=== PATIENT | female | born 1940 | race Caucasian/White ===

== ENCOUNTER 2021-02-19 10:33 | Outpatient (REF) | payer MEDICARE, SELFPAY ==
--- NOTE | 2021-02-22 08:21 | MHC.AU.AHA ---
Adult Audiological Evaluation Date of Visit: 02/19/21 Assistant Engineer Used: Not Applicable Reason for Appointment: Audiologic re-evaluation due to question of change in hearing ability and needs hearing aid maintenance. Previous Hearing Test Results: 05/07/2017 [facility] Right Ear - Mild to moderately-severe sensorineural hearing loss with 96% speech understanding Left Ear - Normal hearing at 250 Hz sloping to a moderate sensorineural hearing loss with 96% speech understanding Medical History: Medical History: Past history of Head Injury, High Blood Pressure, Thyroid Disease Medication List: Telmisartan, Esomeprazole, Antenolol, Levothyroxine, Lorazepam, Dexamethosone Hearing Instrument History- Right Ear: Nurse Sane: Roombeats Model: LiveLeaf 70-M [employer] Serial Number: [id number] Battery Size: 312 Repair Warranty: 02/02/2019 Dispensed By: [facility] Date of Fittin11/13/2015 Hearing Instrument History- Left Ear: Nurse Sane: Roombeats Model: Hearsay.it V 70-M [employer] Serial Number: [id number] Battery Size: 312 Warranty: 02/02/2019 Dispensed By: [facility] Date of Fittin11/13/2015 Otoscopy: Right Ear: Partially occluding cerumen removed prior to today's test Left Ear: Partially occluding cerumen removed prior to today's test Tympanometry: Tympanometry performed due to: History of middle ear dysfunction Right Ear: Non-compliant Middle Ear System (Type B) Left Ear: Normal Middle Ear System (Type A) Hearing Evaluation: Transducer(s) Used: Insert Earphones Method: Conventional Audiometry Stimuli Used: Pure Tones Right Ear: Description of Hearing: Moderate to moderately-severe sensorineural hearing loss Left Ear: Description of Hearing: Normal hearing at 250 Hz sloping to a moderate sensorineural hearing loss Speech Recognition Threshold (SRT): Method Used: Monitored Live Voice Stimuli Used: Spondee Words Right Ear: 45 dB HL Left Ear: 30 dB HL Word Discrimination: Method: Recorded Lists Word Lists Used: NU-6 Right Ear: 96% at 85 dB HL Left Ear: 96% at 70 dB HL Comparison: Compared to most recent evaluation: Hearing thresholds have decreased 5-10 dB bilaterally with stable speech discrimination ability. Recommendations: Hearing aid maintenance performed today. Hearing aid(s) reprogrammed with updated test results. Audiological re-evaluation in one year. Will send a reminder card. Diagnosis: Primary Diagnosis: H90.3 Bilateral Sensorineural Hearing Loss Secondary Diagnosis: H69.91 Unspecified Eustachian Tube Dysfunction, Right Ear Services Performed: Comprehensive Audiological Evaluation (CPT 91120) Tympanometry (CPT 93434) Signature: Provider: Angeline Richards, CCC-A
== END 2021-02-19 10:34 | disposition home or self-care (01) ==
LOC: HO.SH 10:33
PROVIDERS: Visit Provider Internal Medicine
DX: H90.3 Sensorineural hearing loss, bilateral (principal); H69.91 Unspecified Eustachian tube disorder, right ear
CPT/HCPCS: 92557; 92567

== ENCOUNTER 2021-02-19 11:28 | Outpatient (REF) | payer SELFPAY | END 2021-02-19 11:29 | disposition home or self-care (01) | LOC: HO.HAP 11:28 | PROVIDERS: Visit Provider Internal Medicine | DX: Z46.1 Encounter for fitting and adjustment of hearing aid (principal); H90.3 Sensorineural hearing loss, bilateral; H61.23 Impacted cerumen, bilateral | CPT/HCPCS: 92700 ==

== ENCOUNTER → 2021-09-18 10:30 | Outpatient (REF) | payer MEDICARE, SELFPAY ==
--- NOTE | 2021-09-18 10:35 | CA_ITS ---
Transthoracic Echocardiogram Patient (Last, First, Middle): Ambreen Wayne S Gender: Female Date of : 1940 Age: 81 Procedure Date: 09/18/2021 Procedure Type: Transthoracic Echocardiogram Location: OP Height: 157.48 cm Weight: 78.47 kg BSA: 1.80 m2 Heart Rate: bpm BP: 120 / 70 mmHg Train Announcer: SELENE Referring MD: Joanie Raymundo NP Symptoms: I35.0 AORTIC VALVE STENOSIS Study Quality: Fair ECG Rhythm: Sinus Conclusions: - The left ventricular systolic function is normal. The calculated ejection fraction is 63% by biplane method. - There is moderate calcification of the aortic valve. There is mild aortic valve stenosis. - There is moderate mitral annular calcification. Findings Left Ventricle Normal left ventricular cavity size. There is mildly increased left ventricular wall thickness. The left ventricular systolic function is normal. The calculated ejection fraction is 63% by biplane method. There is no evidence of regional wall motion abnormalities. E/E prime ratio is between 8 and 15 consistent with indeterminate filling pressures. Evidence suggests grade I (mild) diastolic dysfunction. Right Ventricle Normal right ventricular cavity size and systolic function. Atria Both atria are normal in size. Aortic Valve There is moderate calcification of the aortic valve. There is mild aortic valve stenosis. The mean gradient is 13 mmHg. The aortic valve area is 1.61 cm2. There is no aortic valve regurgitation. Mitral Valve There is moderate mitral annular calcification. There is trace mitral valve regurgitation. There is no mitral valve stenosis. Pulmonic Valve The pulmonic valve was not well visualized. Tricuspid Valve Normal tricuspid valve structure. There is trace tricuspid valve regurgitation. The pulmonary artery systolic pressure is not calculated. Great Vessels The aortic annulus, sinuses of valsalva, asc aorta, and aortic arch are normal in size. Venous The inferior vena cava is normal in size and collapses greater than 50% with inspiration. Pericardium/Pleural There is no evidence of pericardial effusion. Prior Study Comparison No significant change compared to prior study dated: 08/09/2019. Measurements 2D Linear Measurements IVSd: 1.09 0.6-0.9/0.6-1.0 cm LVIDd: 3.91 3.9-5.3/4.2-5.9 cm LVIDd Index: 2.17 2.4-3.2/2.2-3.1 cm/m2 LVIDs: 2.16 2.0-3.6 cm LVPWd: 1.07 0.7-1.1 cm Ao Root: 3.50 2.1-3.5 cm LA Diam: 3.70 2.7-3.8/3.0-4.0 cm LAIDs Index: 2.06 1.5-2.3 cm/m2 LV Mass: 170.43 67-162/88-224 g LV Mass Index: 94.68 43-95/49-115 g/m2 LVOT Diam: 2.00 3.0+(-)1.3 cm 2D Systolic Function EF 4C: 64.40 >55% EF 2C: 60.70 >55% EF BiP: 62.80 >55% Mitral Valve MV Pk E: 0.64 MV PK A: 1.11 MV Decel Time: 351.00 E/A: 0.60 E'Lateral: 7.07 E'Medial: 4.13 E/E' Med: 15.40 E/E' Lat: 9.00 PHT: 103.00 MVA PHT: 2.14 Decel White: 1.82 Aortic Valve AoV Pk Jarad: 2.46 AoV Mn Jarad: 1.64 AoV VTI: 0.52 AoV Pk Grad: 24.00 Aov Mn Grad: 13.00 DOM Cont.VTI: 1.61 LVOT LVOT Pk Jarad: 1.13 LVOT Mn Jarad: 0.86 LVOT VTI: 0.27 LVOT Pk Grad: 5.00 LVOT Mn Grad: 3.00 LVOT Diam: 2.00 LVOT Area: 3.14 Diastolic Function MV Pk E: 0.64 MV Pk A: 1.11 E/A: 0.60 E'Medial: 4.13 E/E' Med: 15.40 E' Laterial: 7.07 E/E' Lat: 9.00 Right Ventricle TAPSE (mm): 2.39 TVS' Jarad: 11.60 Tricuspid Valve RA Press: 3.00 Great Vessels Aorta Ao Root-2D: 3.50 2.0-3.7 cm Ao Asc: 3.00 2.1-3.4 cm Ao Arch: 3.10 Updated in Other Vendor System with Status of Final Guido Galeano MD electronically signed on 09/20/2021 5:45:52 PM with status of Final
== END ==
LOC: HO.CARD 10:30
PROVIDERS: PCP Internal Medicine; Visit Provider Nurse Practitioner
DX: I35.0 Nonrheumatic aortic (valve) stenosis (principal)
CPT/HCPCS: 93306

== ENCOUNTER 2021-12-18 13:43 | Outpatient (REF) | payer MEDICARE, SELFPAY ==
--- NOTE | ~2021-12-18 | US_ITS ---
EXAMINATION: US EXTRACRANIAL CAROTID DUPLEX, BILATERAL CLINICAL INFORMATION: Dizziness, bilateral carotid bruit COMPARISON: None TECHNIQUE: Real-time ultrasound and Doppler techniques (integrating B-mode 2-D vascular images, Doppler spectral analysis and color-flow Doppler imaging) were utilized to interrogate the extracranial carotid arteries, the vertebral arteries and proximal subclavian arteries bilaterally. The degree of stenosis is determined by criteria similar to NASCET. FINDINGS: Right Side: 1. There is no atherosclerotic plaque seen in the bifurcation/proximal ICA region. 2. The common carotid artery PSV proximally is 119 cm/s and distally 86 cm/s. 3. The proximal internal carotid artery velocities are 88 cm/s systolic and 18 cm/s diastolic. 4. The proximal external carotid artery PSV is 99 cm/s. 5. The vertebral artery shows antegrade flow. 6. The subclavian artery waveforms are normal. Left Side: 1. There is no atherosclerotic plaque seen in the bifurcation/proximal ICA region. 2. The common carotid artery PSV proximally is 97 cm/s and distally 90 cm/s. 3. The proximal internal carotid artery velocities are 54 cm/s systolic and 15 cm/s diastolic. 4. The proximal external carotid artery PSV is 97 cm/s. 5. The vertebral artery shows antegrade flow. 6. The subclavian artery waveforms are normal. US/US carotid duplex BI IMPRESSION: 1. RIGHT: Normal right internal carotid artery without atherosclerotic plaque or hemodynamically significant stenosis. 2. LEFT: Normal left internal carotid artery without atherosclerotic plaque or hemodynamically significant stenosis.
== END 2021-12-18 13:44 | disposition home or self-care (01) ==
LOC: HO.US 13:43
PROVIDERS: Visit Provider Nurse Practitioner
DX: R42 Dizziness and giddiness (principal); R09.89 Other specified symptoms and signs involving the circulatory and respiratory systems
CPT/HCPCS: 93880

== ENCOUNTER 2022-03-17 10:40 | Outpatient (REF) | payer MEDICARE, SELFPAY ==
--- NOTE | ~2022-03-17 | XR_ITS ---
EXAMINATION: XR LUMBOSACRAL SPINE CLINICAL INFORMATION: Bilateral lower back pain. COMPARISON: None TECHNIQUE: AP and lateral views of the lumbar spine and lateral view of the lumbosacral junction. FINDINGS: There is bony demineralization. Vertebral body heights are normal. At L4-L5, there is a 4 mm anterolisthesis. The remaining disc spaces are relatively well-maintained. There is multi-level mild to moderate lower thoracic and lumbar spondylosis. The posterior elements are intact. There is facet arthropathy, most pronounced at L4-L5 and L5-S1. There are aortoiliac atherosclerotic calcifications. There are 9 mm and 10 mm left renal upper pole and lower pole calculi. There are right upper quadrant surgical clips. XR/XR lumbar spine 2-3V IMPRESSION: 1. There is moderate degenerative disc disease at L4-L5. 2. There is multi-level mild to moderate thoracolumbar spondylosis. 3. There is bilateral facet arthropathy, most pronounced at L4-L5 and L5-S1. 4. There are left renal calculi.
== END 2022-03-17 10:41 | disposition home or self-care (01) ==
LOC: HO.XRAY 10:40
PROVIDERS: PCP Internal Medicine; Visit Provider Internal Medicine
DX: M54.50 Low back pain, unspecified (principal); G89.29 Other chronic pain
CPT/HCPCS: 72100

== ENCOUNTER 2022-03-28 10:42 | Outpatient (REF) | payer MEDICARE, SELFPAY ==
--- NOTE | ~2022-03-28 | CT_ITS ---
EXAMINATION: CT ABDOMEN AND PELVIS WITHOUT CONTRAST CLINICAL INFORMATION: Right-sided flank pain. COMPARISON: Radiographs lumbar spine 03/17/2022 TECHNIQUE: Multidetector volumetric imaging was performed from the superior aspect of the liver through the pubic symphysis. Sagittal and coronal reformatted images were obtained on the technologist's workstation. This CT examination was performed using dose optimization techniques as appropriate, variously including the following: *Automated exposure control *Adjustment of mA and/or kV according to patient size (this includes techniques or standardized protocols for targeted exams where dose is matched to indication/reason for exam; i.e. extremities or head) *Use of iterative reconstruction technique DLP: 507 mGy-cm FINDINGS: LUNG BASES: The visualized lung bases are unremarkable. LIVER, GALLBLADDER, AND BILIARY TREE: The liver is normal in size and smooth in contour. There is mild decreased hepatic parenchyma. -No bowel obstruction or inflammatory changes in bowel or mesentery. No ascites. Attenuation consistent with mild hepatic steatosis. No focal hepatic parenchymal lesion or intrahepatic biliary ductal dilatation. There has been prior cholecystectomy. Common duct unremarkable. PANCREAS: Unremarkable. SPLEEN: Unremarkable. ADRENAL GLANDS: Unremarkable. KIDNEYS AND URETERS: The kidneys are normal in size and parenchymal thickness. There is no hydronephrosis, hydroureter, or perinephric stranding. Left kidney has nonobstructing calculus upper pole 8 x 6 mm, 938 HU attenuation, and 11 cm from flank. There is also a nonobstructing interpolar calculus 9 x 5 mm, 1315 HU attenuation, and 14 cm from flank. There are 2 cysts left upper pole, both of water attenuation measuring approximately 4.5 cm and 3.4 cm, respectively. No left ureteral calculi. Right kidney has no calculi and no right ureteral calculi. There is a cyst interpolar under 3 cm of water attenuation. BLADDER: Nondistended. No bladder calculi. GASTROINTESTINAL TRACT: No bowel obstruction or focal inflammatory changes in bowel or mesentery. Appendix not seen with certainty. No inflammatory changes around the terminal ileum or cecum. There are scattered diverticula in the colon, greatest sigmoid. No diverticulitis. No ascites or fluid collection. ABDOMINAL WALL: Small fat-containing periumbilical hernia, approximately 2 cm. LYMPH NODES: No lymphadenopathy. VASCULAR: Unremarkable. PELVIC VISCERA: Unremarkable. OSSEOUS STRUCTURES: No visible acute bony abnormality. There are degenerative disc changes L4-L5 and facet degeneration L4 through S1. CT/CT abdomen pelvis wo con IMPRESSION: -No hydronephrosis or perinephric stranding. There are 2 nonobstructing calculi left kidney, larger 9 mm. -Bilateral renal cysts. No additional imaging evaluation recommended. -Mild hepatic steatosis. Prior cholecystectomy.
== END 2022-03-28 10:43 | disposition home or self-care (01) ==
LOC: HO.CT 10:42
PROVIDERS: PCP Internal Medicine; Visit Provider Internal Medicine
DX: R10.9 Unspecified abdominal pain (principal); Z90.49 Acquired absence of other specified parts of digestive tract
CPT/HCPCS: 74176

== ENCOUNTER 2022-04-14 13:00 | Outpatient (RCR) | payer MEDICARE, SELFPAY | END 2022-04-14 15:40 | disposition home or self-care (01) | LOC: HO.PTCHIC 13:00 | PROVIDERS: PCP Internal Medicine; Visit Provider Internal Medicine | DX: M54.42 Lumbago with sciatica, left side (principal) | CPT/HCPCS: 97110; 97140; 97150; 97161 ==

== ENCOUNTER 2022-05-08 09:47 | Outpatient (REF) | payer SELFPAY | END 2022-05-08 09:48 | disposition home or self-care (01) | LOC: HO.HAP 09:47 | PROVIDERS: Visit Provider Internal Medicine | DX: Z46.1 Encounter for fitting and adjustment of hearing aid (principal); H90.3 Sensorineural hearing loss, bilateral | CPT/HCPCS: 99499 ==

== ENCOUNTER 2022-07-03 15:00 | Outpatient (RCR) | payer MEDICARE, SELFPAY ==
--- NOTE | 2022-07-03 17:03 | MHC.PT.DC ---
[facility] [place] Office [place] Office [place] Office [address] Rishi Kemp [address] [phone] F: [phone] F: [phone] F: [phone] F: [phone] Physical Therapy Discharge Report Diagnosis: L foot hallux valgus Date of Surgery: 04/16/2022 Date of Evaluation: 05/16/22 Date of Discharge: 07/03/22 Treatments to Date: 10 Cancellations to Date: No Shows to Date: Discharge Status: Achieved Goals Improved Function Independent with HEP Discharge Summary: Ambreen has been an active participant in her therapy and is in agreement with DC today as she is I with her home program and although persists with some pain is much improved of her pain and tolerance for walking. LEFI outcome measure improved from 35/80 to 55/80 which is a significant improvement. Electronically signed by: Kodi Duran PT. Please sign and return to therapist. Thank you for your referral.
== END 2022-07-03 17:02 | disposition home or self-care (01) ==
LOC: HO.PTCHIC 15:00
PROVIDERS: Visit Provider Podiatrist
DX: M20.12 Hallux valgus (acquired), left foot (principal)
CPT/HCPCS: 97110; 97112; 97140; 97161

== ENCOUNTER 2022-09-23 12:40 | Outpatient (REF) | payer MEDICARE, SELFPAY ==
--- NOTE | ~2022-09-23 | US_ITS ---
EXAMINATION: US RETROPERITONEAL LIMITED (RENAL ONLY) CLINICAL INFORMATION: Kidney stone. COMPARISON: CT abdomen and pelvis without contrast 03/28/2022. TECHNIQUE: Real-time imaging of the kidneys. FINDINGS: RIGHT KIDNEY: 11.0 x 5.8 x 6.3 cm (SAG x AP x TRV). The kidney is normal in size, contour, and echogenicity. Renal cortical thickness is normal. No renal calculi or hydronephrosis. There is anechoic simple cyst in the midpole measuring 2.8 x 2.5 x 2.6 cm. LEFT KIDNEY: 9.8 x 5.0 x 5.7 cm (SAG x AP x TRV). The kidney is normal in size, contour, and echogenicity. Renal cortical thickness is normal. No hydronephrosis. Anechoic cyst seen upper pole measuring 3.3 x 2.8 x 2.9 cm and 3.9 x 3.1 x 3.9 complex cyst upper pole medially. There is nonobstructive echogenic stone in lower pole measuring 0.48 x 0.22 x 0.75 cm. A nonobstructive echogenic stone is seen lower pole measures 0.48 x 0.23 x 0.75 cm US/US renal BI IMPRESSION: Bilateral simple cysts and a complex cyst upper pole left kidney Nonobstructive echogenic stone lower pole left kidney without caliectasis or hydronephrosis.
== END 2022-09-23 12:41 | disposition home or self-care (01) ==
LOC: HO.HMGCX 12:40
PROVIDERS: Visit Provider Urology
DX: N20.0 Calculus of kidney (principal)
CPT/HCPCS: 76775

== ENCOUNTER 2022-10-23 11:31 | Outpatient (REF) | payer MEDICARE, SELFPAY | END 2022-10-23 11:32 | disposition home or self-care (01) | LOC: HO.SH 11:31 | PROVIDERS: Visit Provider Internal Medicine | DX: Z01.118 Encounter for examination of ears and hearing with other abnormal findings (principal); H90.3 Sensorineural hearing loss, bilateral; H61.21 Impacted cerumen, right ear | CPT/HCPCS: 92557; 92567 ==

== ENCOUNTER 2022-10-23 12:28 | Outpatient (REF) | payer SELFPAY | END 2022-10-23 12:29 | disposition home or self-care (01) | LOC: HO.HAP 12:28 | PROVIDERS: Visit Provider Internal Medicine | DX: Z46.1 Encounter for fitting and adjustment of hearing aid (principal); H90.3 Sensorineural hearing loss, bilateral; H61.21 Impacted cerumen, right ear | CPT/HCPCS: 92700 ==

== ENCOUNTER → 2022-10-31 13:01 | Outpatient (REF) | payer MEDICARE, SELFPAY ==
--- NOTE | 2022-10-31 13:04 | CA_ITS ---
Transthoracic Echocardiogram Patient (Last, First, Middle): Ambreen Wayne S Gender: Female Date of : 1940 Age: 82 Procedure Date: 10/31/2022 Procedure Type: Transthoracic Echocardiogram Location: OP Height: 157.48 cm Weight: 76.66 kg BSA: 1.78 m2 Heart Rate: bpm BP: 130 / 60 mmHg Window Glass Cutter Off: TO Referring MD: Kodi Hong MD Symptoms: HTN NONRHEUMATIC AROTIC VALVE SENTOSIS Study Quality: Fair ECG Rhythm: Sinus Conclusions: - The left ventricular systolic function is normal. The calculated ejection fraction is 68% by biplane method. - There is moderate aortic valve stenosis. - There is mild mitral valve stenosis. Findings Left Ventricle Normal left ventricular cavity size. The left ventricular systolic function is normal. The calculated ejection fraction is 68% by biplane method. There is no evidence of regional wall motion abnormalities. E/E prime ratio is >15, consistent with elevated filling pressures. Evidence suggests grade I (mild) diastolic dysfunction. There is mild septal asymmetric hypertrophy. Right Ventricle Normal right ventricular cavity size and systolic function. Atria Both atria are normal in size. Aortic Valve There is moderate calcification of the aortic valve. There is moderate aortic valve stenosis. The mean gradient is 13 mmHg. The aortic valve area is 1.23 cm2. There is no aortic valve regurgitation. Dimensionless index 0.39. Mitral Valve The mitral valve appears normal. There is moderate mitral annular calcification. There is no mitral valve regurgitation. There is mild mitral valve stenosis. Pulmonic Valve The pulmonic valve is likely normal. Tricuspid Valve There is trace tricuspid valve regurgitation. There is no evidence of pulmonary hypertension. Great Vessels The asc aorta is normal in size. Venous The inferior vena cava is normal in size and collapses greater than 50% with inspiration. Pericardium/Pleural Widened pericardial space, unable to distinguish between adipose tissue and effusion. Prior Study Comparison Changes noted compared to prior study dated: 09/18/2021. Progression of valvular abnormalities. Measurements 2D Linear Measurements IVSd: 1.06 0.6-0.9/0.6-1.0 cm LVIDd: 3.98 3.9-5.3/4.2-5.9 cm LVIDd Index: 2.24 2.4-3.2/2.2-3.1 cm/m2 LVIDs: 2.25 2.0-3.6 cm LVPWd: 0.92 0.7-1.1 cm LA Diam: 4.20 2.7-3.8/3.0-4.0 cm LAIDs Index: 2.36 1.5-2.3 cm/m2 LV Mass: 154.17 67-162/88-224 g LV Mass Index: 86.61 43-95/49-115 g/m2 LVOT Diam: 2.00 3.0+(-)1.3 cm 2D Systolic Function EF 4C: 72.00 >55% EF 2C: 65.30 >55% EF BiP: 67.90 >55% Mitral Valve MV VTI: 0.39 MV Pk Jarad: 1.26 MV Mn Jarad: 0.75 MV Pk Grad: 6.00 MV Mn Grad: 3.00 MV Pk E: 0.72 MV PK A: 1.13 MV Decel Time: 279.00 E/A: 0.60 E'Lateral: 6.96 E'Medial: 4.03 E/E' Med: 17.80 E/E' Lat: 10.30 PHT: 82.00 MVA PHT: 2.68 MVA Continuity: 1.93 Decel [place]: 2.56 Aortic Valve AoV Pk Jarad: 2.47 AoV Mn Jarad: 1.74 AoV VTI: 0.62 AoV Pk Grad: 24.00 Aov Mn Grad: 13.00 DOM Cont.VTI: 1.23 LVOT LVOT Pk Jarad: 0.97 LVOT Mn Jarad: 0.66 LVOT VTI: 0.24 LVOT Pk Grad: 4.00 LVOT Mn Grad: 2.00 LVOT Diam: 2.00 LVOT Area: 3.14 Diastolic Function MV Pk E: 0.72 MV Pk A: 1.13 E/A: 0.60 E'Medial: 4.03 E/E' Med: 17.80 E' Laterial: 6.96 E/E' Lat: 10.30 Right Ventricle TAPSE (mm): 22.20 TVS' Jarad: 10.80 Great Vessels Aorta Sinus of Valsalva: 3.17 2.0-3.[address] [place]: 2.38 1.7-3.4 cm Ao Asc: 3.00 2.1-3.4 cm Updated in Other Vendor System with Status of Final Guido Galeano MD electronically signed on 11/02/2022 10:37:39 AM with status of Final
== END ==
LOC: HO.CARD 13:01
PROVIDERS: PCP Internal Medicine; Visit Provider Internal Medicine
DX: I10 Essential (primary) hypertension (principal)
CPT/HCPCS: 93306

== ENCOUNTER → 2023-11-02 13:00 | Outpatient (REF) | payer MEDICARE, SELFPAY ==
--- NOTE | 2023-11-02 13:04 | CA_ITS ---
Transthoracic Echocardiogram Patient (Last, First, Middle): Ambreen Wayne S Gender: Female Date of : 1940 Age: 83 Procedure Date: 11/02/2023 Procedure Type: Transthoracic Echocardiogram Location: OP Height: 157.48 cm Weight: 76.66 kg BSA: 1.78 m2 Heart Rate: 68 bpm BP: 125 / 75 mmHg Rx Specialist: RUDY Referring MD: Joanie Raymundo NP Symptoms: NONORHEUMATIC MITRAL VALVE STENOSIS Study Quality: Adequate w contrast ECG Rhythm: Sinus Conclusions: - The left ventricular systolic function is normal. The calculated ejection fraction is 69% by biplane method. - There is severe calcification of the aortic valve. There is mild to moderate aortic valve stenosis. Findings Procedure Information Contrast agent, definity, is being given per protocol without apparent complications. Left Ventricle Normal left ventricular cavity size. There is mildly increased left ventricular wall thickness. The left ventricular systolic function is normal. The calculated ejection fraction is 69% by biplane method. There is no evidence of regional wall motion abnormalities. Evidence suggests grade I (mild) diastolic dysfunction. Right Ventricle Normal right ventricular cavity size and systolic function. Atria Both atria are normal in size. Aortic Valve There is severe calcification of the aortic valve. There is mild to moderate aortic valve stenosis. The peak aortic velocity is 2.71 m/s with a calculated peak gradient of 29 mmHg. The mean gradient is 16 mmHg. The aortic valve area is 1.44 cm2. There is no aortic valve regurgitation. Mitral Valve There is mild mitral annular calcification. There is trace mitral valve regurgitation. There is no mitral valve stenosis. Pulmonic Valve The pulmonic valve is likely normal. Tricuspid Valve There is trace tricuspid valve regurgitation. Tricuspid regurgitation envelope is inadequate for calculation of right ventricular systolic pressure. Great Vessels The sinuses of valsalva, sino tubular ridge, and asc aorta are normal in size. Venous The inferior vena cava is normal in size and collapses greater than 50% with inspiration. Pericardium/Pleural There is no evidence of pericardial effusion. Prior Study Comparison No significant change compared to prior study dated: 10/31/2022. Measurements 2D Linear Measurements IVSd: 1.12 0.6-0.9/0.6-1.0 cm LVIDd: 4.06 3.9-5.3/4.2-5.9 cm LVIDd Index: 2.28 2.4-3.2/2.2-3.1 cm/m2 LVIDs: 2.22 2.0-3.6 cm LVPWd: 1.21 0.7-1.1 cm LA Diam: 4.40 2.7-3.8/3.0-4.0 cm LAIDs Index: 2.47 1.5-2.3 cm/m2 LV Mass: 201.75 67-162/88-224 g LV Mass Index: 113.34 43-95/49-115 g/m2 LVOT Diam: 2.20 3.0+(-)1.3 cm 2D Systolic Function EF 4C: 71.40 >55% EF 2C: 65.30 >55% EF BiP: 69.10 >55% Mitral Valve MV VTI: 0.42 MV Pk Jarad: 1.28 MV Mn Jarad: 0.71 MV Pk Grad: 7.00 MV Mn Grad: 2.00 MV Pk E: 0.70 MV PK A: 1.21 MV Decel Time: 296.00 E/A: 0.60 E'Lateral: 6.53 E'Medial: 5.00 E/E' Med: 14.10 E/E' Lat: 10.80 PHT: 87.00 MVA PHT: 2.53 MVA Continuity: 2.25 Decel [place]: 2.38 Aortic Valve AoV Pk Jarad: 2.71 AoV Mn Jarad: 1.87 AoV VTI: 0.65 AoV Pk Grad: 29.00 Aov Mn Grad: 16.00 DOM Cont.VTI: 1.44 LVOT LVOT Pk Jarad: 1.08 LVOT Mn Jarad: 0.74 LVOT VTI: 0.25 LVOT Pk Grad: 5.00 LVOT Mn Grad: 2.00 LVOT Diam: 2.20 LVOT Area: 3.80 Diastolic Function MV Pk E: 0.70 MV Pk A: 1.21 E/A: 0.60 E'Medial: 5.00 E/E' Med: 14.10 E' Laterial: 6.53 E/E' Lat: 10.80 Right Ventricle TAPSE (mm): 20.80 TVS' Jarad: 10.90 Tricuspid Valve RA Press: 3.00 Great Vessels Aorta Sinus of Valsalva: 3.56 2.0-3.5 cm Ao Asc: 3.10 2.1-3.4 cm Updated in Other Vendor System with Status of Final Guido Galeano MD electronically signed on 11/03/2023 11:07:32 AM with status of Final
== END ==
LOC: HO.CARD 13:00
PROVIDERS: PCP Internal Medicine; Visit Provider Nurse Practitioner
DX: I34.2 Nonrheumatic mitral (valve) stenosis (principal)
CPT/HCPCS: 93306; Q9957

== ENCOUNTER → 2023-11-02 13:04 | Outpatient (BNV) | payer MEDICARE, SELFPAY | PROVIDERS: PCP Internal Medicine; Visit Provider Internal Medicine | DX: I35.0 Nonrheumatic aortic (valve) stenosis (principal) | CPT/HCPCS: 93306 ==

== ENCOUNTER 2023-12-14 13:09 | Outpatient (AMB) | payer MEDICARE, SELFPAY ==
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
[2023-12-14 13:14] VITALS: BP 124/76; PULSE 78; O2SAT 97; BMI 32.3
== END 2023-12-14 13:51 | disposition home or self-care (01) ==
PROVIDERS: PCP Internal Medicine; Visit Provider Nurse Practitioner Family
DX: R06.09 Other forms of dyspnea (principal); R05.9 Cough, unspecified; Z87.891 Personal history of nicotine dependence
CPT/HCPCS: 99204

== ENCOUNTER → 2023-12-14 13:09 | Outpatient (BNVA) | payer MEDICARE, SELFPAY | PROVIDERS: PCP Internal Medicine; Visit Provider Nurse Practitioner Family | DX: R06.09 Other forms of dyspnea (principal); R05.9 Cough, unspecified; Z87.891 Personal history of nicotine dependence | CPT/HCPCS: 99202 ==

== ENCOUNTER 2024-01-25 14:36 | Outpatient (REF) | payer MEDICARE, SELFPAY ==
[2024-01-25 11:03] VITALS: PULSE 62; RESP 16; O2SAT 96
--- NOTE | 2024-01-25 15:51 | PFT_ITS ---
Flows: FEV1: 117 % of predicted at 2.05 L FVC: 108 % of predicted at 2.48 L FEV1/FVC: 83 % Bronchodilator response: Absent Volumes: Total lung capacity: 111 % of predicted at 5.03 L Residual volume: 127 % of predicted at 2.58 L Slow vital capacity: 102 % of predicted at 2.46 L Expiratory reserve volume: 0 % of predicted at 0 L Diffusion capacity: Mildly decreased Impression: No obstructive or restrictive ventilatory defect. Increased residual volume suggests air trapping. Decreased diffusion capacity suggests emphysema. MTDD
== END 2024-01-25 14:37 | disposition home or self-care (01) ==
LOC: HO.RESP 14:36
PROVIDERS: PCP Internal Medicine; Visit Provider Nurse Practitioner Family
DX: R06.09 Other forms of dyspnea (principal); R05.9 Cough, unspecified; Z87.891 Personal history of nicotine dependence
CPT/HCPCS: 94010; 94640; 94727; 94729

== ENCOUNTER → 2024-01-25 15:51 | Outpatient (BNV) | payer MEDICARE, SELFPAY | PROVIDERS: PCP Internal Medicine; Visit Provider Internal Medicine Pulmonary Disease | DX: R06.09 Other forms of dyspnea (principal); R05.9 Cough, unspecified; Z87.891 Personal history of nicotine dependence | CPT/HCPCS: 94060; 94727; 94729 ==

== ENCOUNTER 2024-02-05 13:14 | Outpatient (REF) | payer MEDICARE, SELFPAY ==
--- NOTE | ~2024-02-05 | CT_ITS ---
EXAMINATION: CT CHEST WITHOUT CONTRAST CLINICAL INFORMATION: Cough COMPARISON: None available. TECHNIQUE: Multidetector volumetric CT imaging of the chest was done. Axial MIP volume rendering provided. Sagittal and coronal reformatted images were obtained. This CT examination was performed using dose optimization techniques as appropriate, variously including the following: *Automated exposure control *Adjustment of mA and/or kV according to patient size (this includes techniques or standardized protocols for targeted exams where dose is matched to indication/reason for exam; i.e. extremities or head) *Use of iterative reconstruction technique DLP: 164 mGy-cm FINDINGS: SEO COORDINATOR: Unremarkable LUNGS: Lungs are clear with few ill-defined subpleural lung nodules such as 0.3 cm nodule in the right upper lobe seen on image 222 series 5 micronodule in the right lower lobe seen on image 323 series 5 MEDIASTINUM: The mediastinum is normal. CORONARY ARTERY CALCIFICATION: Heavily calcified coronary arteries seen. PLEURA: There is no pleural effusion. No pleural mass or thickening. AXILLA: No lymphadenopathy. UPPER ABDOMEN: Gallbladder is surgically absent. Partially visualized kidneys demonstrate exophytic cysts OSSEOUS STRUCTURES: Unremarkable. CT/CT chest wo IV con IMPRESSION: 1. No abnormal findings in the lungs. 2. Heavily calcified coronary arteries. 3. Ill-defined subpleural lung nodule. 4. Status post cholecystectomy. 5. Exophytic cysts in the kidneys. Fleischner guidelines were followed.
== END 2024-02-05 13:15 | disposition home or self-care (01) ==
LOC: HO.CT 13:14
PROVIDERS: PCP Internal Medicine; Visit Provider Nurse Practitioner Family
DX: R05.9 Cough, unspecified (principal)
CPT/HCPCS: 71250

== ENCOUNTER 2024-02-08 11:03 | Outpatient (AMB) | payer MEDICARE, SELFPAY ==
--- NOTE | 2024-02-08 09:41 | MHC.OFFVIS ---
Vital Signs 02/08/24 11:09 Height 5 ft 2 in Weight 177 lb 7.554 oz BMI 32.5 BP 120/68 Blood Pressure Location Lt brachial Position Sitting Pulse 64 Pulse Source Pulse Oximeter Pulse Oximetry (%) 97 Oxygen Delivery Method Room Air Intake Visit Reasons: Shortness of breath Allergies Sulfa (Sulfonamide Antibiotics) Allergy (Intermediate, Verified 12/14/23 13:19) RASH/BLISTERS Shellfish Allergy (Severe, Uncoded 12/14/23 13:19) SEVERE VOMITING/DIARRHEA HPI HPI Shortness of breath: Details: Ambreen is a pleasant 83 year old female, former smoker with 20+ pack year history, quit 2019, with underlying HTN, moderate aortic stenosis, CHF on lasix 20 mg BID, GERD, IgA deficiency and recent drug eluding stent placed 10/31 of LAD. She reports ongoing dyspnea for about a year that was initially thought to be related to CAD, however after stent placement patient did not have any improvement in symptoms, however since the last visit has had resolution of dyspnea. She also denies wheezing or chest tightness. She does continue to report a dry cough,occasionally productive with clear sputum. She also reports symptoms of reflux, not using PPI conistently. Today she presents to review PFT and chest CT. [facility] Social History Patient Tobacco Use Status: Former Tobacco user Tobacco use type: Cigarette Cigarette Packs Per Day: 0.5 Years Smoked: 25+ Quit 2019. Review of Systems Const Denies chills, Denies excessive sweating, Denies fever(s), Denies headache(s) and Denies night sweats Eyes Denies dry eyes, Denies irritation and Denies itchy eyes ENT Reports Normal hearing present, Denies headache(s), Denies nasal congestion, Denies nasal discharge and Denies sore throat Card Denies chest pain, Denies chest pain at rest, Denies chest pain with activity, Denies claudication, Denies leg edema, Denies orthopnea and Denies paroxysmal nocturnal dyspnea Resp Denies chest congestion, Denies excessive phlegm production, Denies pain on inspiration, Denies pain with cough, Denies stridor and Denies wheezing Musc Denies myalgias Neuro Reports Normal hearing present and Denies headache(s) Endo Denies excessive sweating Justice/Lymph Denies lymphadenopathy Aller/Immun Denies itchy eyes, Denies seasonal rhinorrhea and Denies wheezing Physical Exam Vital Signs: Last Vital Signs Pulse 64 02/08/24 11:09 BP 120/68 02/08/24 11:09 Pulse Ox 97 02/08/24 11:09 Oxygen Delivery Method Room Air 02/08/24 11:09 BMI result Body Mass Index 32.5 Const General: cooperative, healthy appearing, comfortable, no acute distress, well developed and alert Orientation/consciousness: patient oriented x3 Limitations: no limitations HEENT Head: Yes normal to inspection, Yes normocephalic and Yes atraumatic Ears: hearing grossly normal bilaterally and external ears normal Eyes General: appearance normal, both eyes and all related structures Eyelids: Yes eyelids normal Sclerae: sclerae normal EOM: EOMs intact bilaterally Neck Neck: Yes normal visual inspection and Yes no lymphadenopathy Lymphatic: no lymphadenopathy noted Chest Chest palpation & inspection: normal inspection of the chest Resp Effort & Inspection: normal respiratory effort, able to speak in complete sentences, no audible wheezes, no cough, no stridor, not tachypneic, no tripod positioning and no use of accessory muscles Auscultation: diminished lung sounds Cardio Jugular venous distension: no JVD Rate: regular rate Rhythm: regular rhythm Skin Other: warm, dry General skin exam: no rashes or lesions noted Neuro General: patient oriented x3 Cranial nerves: Yes Normal hearing present Cognition (Neuro): normal cognition Gait exam (Neuro): Normal gait present Extrem General: Yes normal to inspection, Yes capillary refill normal, Yes no clubbing, cyanosis or edema and Yes no pedal edema Psych Appearance: grossly normal and well kempt Speech and movement: Normal speech and movement present and Clear speech present Affect: normal affect Attitude: cooperative Thought process: Normal thought process present Thought content: Normal thought content present Insight: Good insight present (Psych) Judgement: Good judgement present (Psych) Assessment & Plan Assessment & Plan (1) Dyspnea on exertion: Code(s): R06.09 - Other forms of dyspnea Category: Medical (2) Cough: Code(s): R05.9 - Cough, unspecified Category: Medical (3) Personal history of tobacco use: Code(s): Z87.891 - Personal history of nicotine dependence Category: Social Hx Plan Reviewed PFT which revealed no obstructive or restrictive ventilatory defect. Increased residual volume suggests air trapping. Decreased diffusion capacity suggests emphysema. Chest CT not officially read, will call patient with results when available. She reports poorly controlled GERD and post nasal drip, which are likely contributing factors to dry cough. We discussed compliance with PPI as she has been taking infrequently as well as nasal saline rinses, as she would like to avoid additional medications. We also discussed reflux diet and measures to decrease symptoms. In regards to her dyspnea, she reports significant improvements since last visit. At this time, she is not interested in further interventions. All questions were answered and patient is in agreement of plan. Will follow up PRN. Coding Level of Care Code Est Pt Level 4 (23406) Diagnoses Dyspnea on exertion R06.09 Cough R05.9 Personal history of tobacco use Z87.898
[2024-02-08 11:09] VITALS: BP 120/68; PULSE 64; O2SAT 97; BMI 32.5
== END 2024-02-08 11:39 | disposition home or self-care (01) ==
PROVIDERS: PCP Internal Medicine; Visit Provider Nurse Practitioner Family
DX: R06.09 Other forms of dyspnea (principal); R05.9 Cough, unspecified; Z87.891 Personal history of nicotine dependence
CPT/HCPCS: 99214

== ENCOUNTER → 2024-02-08 11:03 | Outpatient (BNVA) | payer MEDICARE, SELFPAY | PROVIDERS: PCP Internal Medicine; Visit Provider Nurse Practitioner Family | DX: R06.09 Other forms of dyspnea (principal); R05.9 Cough, unspecified; Z87.891 Personal history of nicotine dependence | CPT/HCPCS: 99212 ==

== ENCOUNTER 2024-02-22 13:47 | Outpatient (REF) | payer MEDICARE, SELFPAY ==
[2024-02-22 15:09] LABS: Leukocytes Stool Qualitative NEGATIVE (NEGATIVE)
[2024-02-22 15:48] LABS: Adenovirus F 40/41 Not Detected (Not Detect.); Astrovirus Not Detected (Not Detect.); Campylobacter Not Detected (Not Detect.); Cryptosporidium Not Detected (Not Detect.); Cyclospora cayetanensis Not Detected (Not Detect.); E. coli EAEC Not Detected (Not Detect.); E. coli EPEC Not Detected (Not Detect.); E. coli ETEC Not Detected (Not Detect.); E. coli STEC Not Detected (Not Detect.); Entamoeba histolytica Not Detected (Not Detect.); Giardia lamblia Not Detected (Not Detect.); Norovirus GI/GII Not Detected (Not Detect.); Plesiomonas shigelloides Not Detected (Not Detect.); Rotavirus A Not Detected (Not Detect.); Salmonella Not Detected (Not Detect.); Sapovirus Not Detected (Not Detect.); Shigella sp./EIEC Not Detected (Not Detect.); Vibrio Not Detected (Not Detect.); Vibrio Cholerae Not Detected (Not Detect.); Yersinia enterocolitica Not Detected (Not Detect.)
[2024-02-29 20:08] LABS: Calprotectin, Fecal 970 mcg/g
== END 2024-02-22 13:48 | disposition home or self-care (01) ==
LOC: HO.LNP 13:47
PROVIDERS: Visit Provider Internal Medicine Gastroenterology
DX: R19.8 Other specified symptoms and signs involving the digestive system and abdomen (principal)
CPT/HCPCS: 83993; 87177; 87209; 87507; 89055

== ENCOUNTER 2024-03-30 10:38 | Outpatient (RCR) | payer MEDICARE, SELFPAY ==
[2024-03-30 11:05] VITALS: BP 135/55; PULSE 80
== END 2024-05-30 14:49 | disposition home or self-care (01) ==
LOC: HO.PT 10:38
PROVIDERS: PCP Internal Medicine; Visit Provider Internal Medicine
DX: H81.10 Benign paroxysmal vertigo, unspecified ear (principal)
CPT/HCPCS: 95992; 97162; 97535

== ENCOUNTER 2024-05-06 13:30 | Outpatient (RCR) | payer MEDICARE, SELFPAY | END 2024-05-10 08:25 | disposition home or self-care (01) | LOC: HO.CR 13:30 | PROVIDERS: PCP Internal Medicine; Visit Provider Nurse Practitioner | DX: Z98.61 Coronary angioplasty status (principal) | CPT/HCPCS: 93798 ==

== ENCOUNTER 2024-05-20 11:44 | Outpatient (AMB) | payer MEDICARE, SELFPAY ==
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
[2024-05-20 11:52] VITALS: BP 128/86; PULSE 79; TEMP 36.6; O2SAT 97; BMI 31.3
== END 2024-05-20 12:23 | disposition home or self-care (01) ==
PROVIDERS: PCP Internal Medicine; Visit Provider Physician Assistant
DX: S30.861A Insect bite (nonvenomous) of abdominal wall, initial encounter (principal); W57.XXXA Bitten or stung by nonvenomous insect and other nonvenomous arthropods, initial encounter
CPT/HCPCS: 99213

== ENCOUNTER 2024-06-08 12:23 | Day surgery (SDC) | payer MEDICARE, SELFPAY ==
--- NOTE | 2024-06-07 12:31 | P.CONAN_ITS ---
Documented by User: Jessica Hou NP 06/07/24 12:37 HPI - Anesthesia Eval Consult details Narrative: 83yo F for Upper Endoscopy and Colonoscopy Follows [facility] for htn, hld, mod , mild mitral stenosis. OK to proceed with colo and hold plavix per 05/2024 office visit s/p RAMÓN 10/2023 of LAD (per office visit, symptoms of SOB/ABDALLA improved with stent) PMFSH Active Problems Active Problems: All Active Problems Tick bite of abdomen (Acute) Personal history of tobacco use (Acute) Cough (Acute) Dyspnea on exertion (Acute) Wound, open, elbow (Acute) Dog scratch (Acute) Past Medical History Medical History Mitral stenosis CAD (coronary artery disease) Aortic stenosis Osteoarthritis Anxiety Depression Hypothyroid Arthritis HTN (hypertension) Traumatic pneumohemothorax Colitis PTSD (post-traumatic stress disorder) GERD (gastroesophageal reflux disease) Surgical History Surgical History History of extraction of renal calculus History of total bilateral knee replacement Hx of cataract extraction Hx of cholecystectomy Hx of cardiac catheterization History of esophagogastroduodenoscopy (EGD) H/O colonoscopy Social History Social History Patient Tobacco Use Status: Former Tobacco user Tobacco use type: Cigarette Cigarette Packs Per Day: 0.5 Years Smoked: 25+ Quit 2019. Use of substances other than those prescribed or required for medical reasons: No Are you DNR?: No Advance Directives: No Advance Directives Information Provided: Yes Meds Allergies Allergy/AdvReac Type Severity Reaction Status Date / Time shellfish derived Allergy Severe severe Verified 05/20/24 11:50 vomiting/diarrhea Sulfa (Sulfonamide Allergy Intermediate RASH/BLISTE Verified 05/20/24 11:50 Antibiotics) RS Home Medications ?Medication ?Instructions ?Recorded ?Confirmed ?Last Taken ?Type esomeprazole magnesium 20 mg 20 mg PO DAILY 01/01/21 06/08/24 06/08/24 09:00 History capsule,delayed release levothyroxine 137 mcg tablet 137 mcg PO DAILY 01/01/21 06/08/24 06/08/24 09:00 History lorazepam 1 mg tablet 1 mg PO BID 01/01/21 06/08/24 Unknown History allopurinol 100 mg tablet 100 mg PO BID 12/14/23 06/08/24 06/08/24 09:00 History aspirin 81 mg tablet,delayed 81 mg PO DAILY 12/14/23 06/08/24 Unknown History release (Adult Aspirin Regimen) cholecalciferol (vitamin D3) 50 50 mcg PO DAILY 12/14/23 06/08/24 Unknown History mcg (2,000 unit) capsule clopidogrel 75 mg tablet 75 mg PO DAILY 12/14/23 06/08/24 06/01/24 History famotidine 20 mg tablet 20 mg PO DAILY PRN Acid Reflux 12/14/23 06/08/24 Unknown History furosemide 20 mg tablet 20 mg PO BID 12/14/23 06/08/24 Unknown History atenolol 25 mg tablet 25 mg PO DAILY 05/20/24 06/08/24 06/08/24 09:00 History telmisartan 40 mg tablet 40 mg PO DAILY 05/20/24 06/08/24 Unknown History Exam Narrative Narrative: EKG 05/2024 NSR @ 62, unusual P axis Per cardiac note, ECHO 2022 Nml LV function, EF 68% Moderate Mild MS Assessment and Plan Assessment Anesthesia Assessment: Chart Reviewed Documented by User: Amy Wade MD 06/08/24 14:22 [facility] Past Medical History Medical History Mitral stenosis CAD (coronary artery disease) Aortic stenosis Osteoarthritis Anxiety Depression Hypothyroid Arthritis HTN (hypertension) Traumatic pneumohemothorax Colitis PTSD (post-traumatic stress disorder) GERD (gastroesophageal reflux disease) Family History Family history of problems with anesthesia: No Surgical History Surgical History History of extraction of renal calculus History of total bilateral knee replacement Hx of cataract extraction Hx of cholecystectomy Hx of cardiac catheterization History of esophagogastroduodenoscopy (EGD) H/O colonoscopy History of Problems with Anesthesia: No Social History Social History Patient Tobacco Use Status: Former Tobacco user Tobacco use type: Cigarette Cigarette Packs Per Day: 0.5 Years Smoked: 25+ Quit 2019. Use of substances other than those prescribed or required for medical reasons: No Are you DNR?: No Advance Directives: No Advance Directives Information Provided: Yes Meds Allergies Allergy/AdvReac Type Severity Reaction Status Date / Time shellfish derived Allergy Severe severe Verified 05/20/24 11:50 vomiting/diarrhea Sulfa (Sulfonamide Allergy Intermediate RASH/BLISTE Verified 05/20/24 11:50 Antibiotics) RS Home Medications ?Medication ?Instructions ?Recorded ?Confirmed ?Last Taken ?Type esomeprazole magnesium 20 mg 20 mg PO DAILY 01/01/21 06/08/24 06/08/24 09:00 History capsule,delayed release levothyroxine 137 mcg tablet 137 mcg PO DAILY 01/01/21 06/08/24 06/08/24 09:00 History lorazepam 1 mg tablet 1 mg PO BID 01/01/21 06/08/24 Unknown History allopurinol 100 mg tablet 100 mg PO BID 12/14/23 06/08/24 06/08/24 09:00 History aspirin 81 mg tablet,delayed 81 mg PO DAILY 12/14/23 06/08/24 Unknown History release (Adult Aspirin Regimen) cholecalciferol (vitamin D3) 50 50 mcg PO DAILY 12/14/23 06/08/24 Unknown History mcg (2,000 unit) capsule clopidogrel 75 mg tablet 75 mg PO DAILY 12/14/23 06/08/24 06/01/24 History famotidine 20 mg tablet 20 mg PO DAILY PRN Acid Reflux 12/14/23 06/08/24 Unknown History furosemide 20 mg tablet 20 mg PO BID 12/14/23 06/08/24 Unknown History atenolol 25 mg tablet 25 mg PO DAILY 05/20/24 06/08/24 06/08/24 09:00 History telmisartan 40 mg tablet 40 mg PO DAILY 05/20/24 06/08/24 Unknown History Exam Airway Mallampati Class: II TM Dist: >3cm Neck ROM: Full Heart: rrr Lungs: cta Assessment and Plan Assessment Anesthesia Assessment: Anesthesia Plan Discussed Final Anesthetic Review Family History of Problems with Anesthesia: No History of Problems with Anesthesia: No NPO: Yes ASA Class: III Final Preanesthetic Review: No Changes in Pt Med Stat, Meds/Allgs Chart Reviewed, Consent Obtained/Reviewed and Anes Risks/Benef Reviewed Patient Risk: Intermediate Procedure Risk: Low Anesthetic Plan Anesthetic Plan: MAC: Disposition: Standard PACU
--- NOTE | 2024-06-08 13:12 | MHC.SHP ---
Pre-Procedural Eval Section A - 24 Hr Update-Section A only Date of Service: 06/08/24 The patient is an INPATIENT: No Changes since office visit: No Cold of Flu in the past 2 weeks, No New Medical Problems, No Changes in Medication and No Patient answered all questions The patient has been examined within 24 hours of the surgical procedure. The History & Physical has been completed within 30 days and I have reviewed it.: Yes Section B - Complete if H&P > 30 days Chief Complaint: Other specified symptoms and signs involving the Allergies: Allergies Allergy/AdvReac Type Severity Reaction Status Date / Time shellfish derived Allergy Severe severe Verified 05/20/24 11:50 vomiting/diarrhea Sulfa (Sulfonamide Allergy Intermediate RASH/BLISTE Verified 05/20/24 11:50 Antibiotics) RS Plan I have reviewed the history and physical and performed a pertinent physical examination on my patient. No changes have occurred unless specified. Time Spent With Patient Time: Total time managing care of this patient today ____ minutes.
[2024-06-08 13:41] VITALS: BMI 30.2
[2024-06-08 13:45] VITALS: BP 143/60; PULSE 63; RESP 20; TEMP 36.3; O2SAT 98
[2024-06-08] MEDS: Lactated Ringers 1,000 ML 100 ML IVCONT (14:03)
[2024-06-08 14:42] VITALS: BP 95/46; PULSE 64; RESP 16; TEMP 36.2; O2SAT 95
[2024-06-08 14:57] VITALS: BP 96/54; PULSE 72; RESP 16; O2SAT 95
[2024-06-08 15:12] VITALS: BP 127/60; PULSE 60; RESP 16; O2SAT 98
--- NOTE | 2024-06-08 15:14 | OP_ITS ---
DATE OF SERVICE: 06/08/2024 SURGEON: Juanjo Lewis MD INDICATIONS: Gastroesophageal reflux disease and change in bowel movement. PREOPERATIVE DIAGNOSIS: POSTOPERATIVE DIAGNOSIS: PROCEDURE PERFORMED: Upper endoscopy, colonoscopy to the terminal ileum with biopsy. ESTIMATED BLOOD LOSS: COMPLICATIONS: ANESTHESIA: Monitored anesthesia care. ASSISTANTS: SPECIMENS: DESCRIPTION OF PROCEDURE: A history and physical was performed. The risks and benefits of the procedure were explained to the patient and informed consent was obtained. The patient was placed in the left lateral decubitus position. The Olympus video gastroscope was introduced into the esophagus, stomach, and duodenum. Examination was performed and the scope was removed. She was repositioned for colonoscopy. A digital rectal exam was performed and was found to be normal. The Olympus pediatric video colonoscope was introduced into the rectum and advanced to the cecum. The cecum was identified by transillumination, palpation, and identification of ileocecal valve. Examination was performed and the scope was removed. She tolerated both procedures well and was returned to recovery area in stable condition. FINDINGS: Upper endoscopy, esophagus: The esophagus was normal. There was no esophagitis. Stomach: The stomach showed multiple benign-appearing polyps in the body and fundus consistent with fundic gland polyps, all of these measured less than 10 mm. The antrum was normal. Duodenum: The bulb and 2nd portion were normal. Colonoscopy: The terminal ileum was examined and appeared normal. The visualized colonic mucosa was normal. The quality of the prep was fair with some liquid stool. This was washed and suctioned. There was mild sigmoid diverticulosis. No colitis was identified. No polyps were seen. Random biopsies were obtained from the sigmoid to evaluate for microscopic colitis. Retroflexed examination showed small internal hemorrhoids. IMPRESSION: 1. Normal upper endoscopy. 2. Normal colonoscopy. RECOMMENDATIONS: 1. Follow up the biopsy results. 2. Repeat colonoscopy for screening purposes not recommended based on age. MD HENRIQUE Copeland/LINWOODL / [phone]
[2024-06-08 15:25] VITALS: BP 118/49; PULSE 56; RESP 16; O2SAT 98
[2024-06-08 15:40] VITALS: BP 130/47; PULSE 55; RESP 16; TEMP 36.1; O2SAT 97
== END 2024-06-08 15:47 | disposition home or self-care (01) ==
PROVIDERS: PCP Internal Medicine; Visit Provider Internal Medicine Gastroenterology
PROC: (CPT 43235; principal; 2024-06-08 13:50)
DX: K31.7 Polyp of stomach and duodenum (principal); K21.9 Gastro-esophageal reflux disease without esophagitis; K57.30 Diverticulosis of large intestine without perforation or abscess without bleeding; K64.8 Other hemorrhoids; R19.4 Change in bowel habit; Z86.0101 Personal history of adenomatous and serrated colon polyps; I10 Essential (primary) hypertension; E03.9 Hypothyroidism, unspecified; Z87.891 Personal history of nicotine dependence; Z79.899 Other long term (current) drug therapy
CPT/HCPCS: 43235; 45380; 88305; J1100; J1596; J2003; J2704

== ENCOUNTER 2024-06-25 09:59 | Outpatient (REF) | payer MEDICARE, SELFPAY ==
[2024-07-01 14:43] LABS: Fecal Fat Qualitative NORMAL (NORMAL)
[2024-07-02 20:24] LABS: Calprotectin, Fecal 1040 mcg/g
[2024-07-04 16:24] LABS: Pancreatic Elastase-1 >500 mcg/g
== END 2024-06-25 10:00 | disposition home or self-care (01) ==
LOC: HO.LNP 09:59
PROVIDERS: Visit Provider Internal Medicine Gastroenterology
DX: R19.7 Diarrhea, unspecified (principal)
CPT/HCPCS: 82656; 82705; 83993

== ENCOUNTER 2024-07-07 08:01 | Outpatient (REF) | payer MEDICARE, SELFPAY ==
--- NOTE | ~2024-07-07 | FL_ITS ---
EXAMINATION: XR FLUOROSCOPY UPPER GI SERIES WITH SMALL BOWEL SERIES CLINICAL INFORMATION: Chronic diarrhea. Elevated calprotectin (can be associated with inflammatory bowel disease). COMPARISON: 1 None TECHNIQUE: Fluoroscopic air contrast upper GI examination was performed utilizing standard techniques with thin and thick barium and effervescent granules. Numerous spot images were obtained. Several fluoroscopic image hold cine sequences were also obtained. This was followed by small bowel series using standard overhead radiographic techniques at specified intervals until contrast was seen in the right colon. Fluoroscopic spot radiographs were then obtained of the terminal ileum and any abnormal findings in the small bowel. FINDINGS: Lateral cine images of the oropharynx and hypopharynx demonstrate normal swallow mechanism with normal epiglottic inversion and soft palate elevation. There is excessive pooling of contrast in the vallecula and piriform sinuses. No tracheal penetration, glottic or subglottic aspiration identified. No nasopharyngeal reflux present. Hypopharyngeal structures appear normal without evidence of mass or diverticulum. 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 Dual and single contrast images of the esophagus demonstrate normal caliber, contour, and mucosal pattern. No evidence of stricture, mass, or ulcerations identified. Esophageal peristalsis is moderately disorganized. A small type I hiatal hernia is present. No significant gastroesophageal reflux was seen during the course of the examination and on reflux views. Dual contrast and single contrast images of the stomach demonstrated a normal contour. The gastric rugal folds have a thickened appearance, suggestive of gastritis. There are several small filling defects most likely representing hyperplastic polyps. No masses or large ulcerations are seen. Contrast freely passed into the gastric antrum and duodenal bulb without delay. Single and air-contrast images of the duodenal bulb demonstrate no abnormality. The duodenal sweep has a normal appearance, course, and mucosal fold appearance. SMALL BOWEL SERIES: Engine Service Repairer view demonstrates a nonspecific bowel gas pattern. Surgical clips are present in the right upper quadrant. An isolated clip is present in the right lateral abdominal wall as seen on prior CT. Degenerative changes present in the spine, SI joints, and bilateral hip joints. No organomegaly. Elevated right hemidiaphragm. Lung bases demonstrate mild bibasilar scarring or atelectasis. Sequential imaging of the jejunum and ileum have normal caliber, fold pattern, and appearance without evidence of mass, stricture, or abnormal dilatation. Spot imaging of the terminal ileum demonstrates no abnormality. No dilution of contrast noted through progression. Contrast was seen in the right colon after 60 minutes FLUOROSCOPY TIME: 4 minutes 33 seconds Number of Spot Images: 6 Number of Cine: 7 DOSE AREA PRODUCT: 2991 uGy-m2 (microgray-meter squared) FL/FL upper GI w air w SBFT IMPRESSION: 1. Mild cricopharyngeal achalasia present. 2. Moderately disorganized esophageal peristalsis. 3. Small type I hiatal hernia. 4. Thickened appearance of the gastric rugal folds, suggestive of gastritis. Filling defects likely representing gastric hyperplastic polyps. 5. Status postcholecystectomy, with surgical clips present in the upper quadrant and right lateral abdominal wall. 6. Normal small bowel series. No radiographic evidence of inflammatory bowel disease. This procedure was performed by Ole Oleary PA-C, and supervised by Dr. Ta Electronically signed by: Kevin Ta MD 07/08/2024 12:45 PM EDT
== END 2024-07-07 08:02 | disposition home or self-care (01) ==
LOC: HO.XRAY 08:01
PROVIDERS: PCP Internal Medicine; Visit Provider Internal Medicine Gastroenterology
DX: R19.5 Other fecal abnormalities (principal)
CPT/HCPCS: 74246; 74248

== ENCOUNTER → 2024-07-07 08:02 | Outpatient (BNV) | payer MEDICARE, SELFPAY | PROVIDERS: PCP Internal Medicine; Visit Provider Physician Assistant Surgical | DX: R19.7 Diarrhea, unspecified (principal) | CPT/HCPCS: 74246 ==

== ENCOUNTER 2024-08-12 11:56 | Outpatient (REF) | payer MEDICARE, SELFPAY | END 2024-08-12 11:57 | disposition home or self-care (01) | LOC: HO.SH 11:56 | PROVIDERS: Visit Provider Internal Medicine | DX: Z01.118 Encounter for examination of ears and hearing with other abnormal findings (principal); H90.3 Sensorineural hearing loss, bilateral | CPT/HCPCS: 92557 ==

== ENCOUNTER 2024-08-12 13:03 | Outpatient (REF) | payer SELFPAY ==
--- NOTE | 2024-08-12 13:10 | MHC.AU.HA3 ---
Hearing Instrument Follow-Up- Binaural Date of Visit: 08/12/24 Right Ear: Efe, Model, Color, Serial Number: Mignon Lindquist V 70-M ABHISHEKE Sarah Andre #[id number] Sack Filler Repair Warranty: 02/02/2019 Sack Filler Loss and Damage Warranty: [facility] Service Plan: NONE Battery Size: 312 Cat Hooker/Slim Tube: #0 slim tube Earmold/Dome/CShell/SlimTip:Medium Open Type of Wax Guard: None Dispensed By: [facility] Date of Fittin11/13/2015 Left Ear: Efe, Model, Color, Serial Number: Mignon Lindquist V 70-M ABHISHEKE Sarah Andre # Sack Filler Repair Warranty: 02/02/2019 Sack Filler Loss and Damage Warranty: [facility] Service Plan: NONE Battery Size: 312 Cat Hooker/Slim Tube: #0 slim tube Earmold/Dome/CShell/SlimTip: Medium Open Type of Wax Guard: None Dispensed By: [facility] Date of Fittin11/13/2015 Follow-Up Summary: Seen for evaluation and hearing aid maintenance. Cleaned and checked aids, ran through dehumidifier, replaced slim tubes and domes. Listening check positive. Ambreen reports improvement following maintenance. Ambreen reports she went to [facility] and they told her that her hearing aids weren't any good anymore. Discussed the age of her aids and benefits of new technology. Not interested in new amplification at this time as these hearing aids are still working for her. Recommendations: Recommendations: Hearing instrument follow-up or maintenance as needed. Diagnosis Code(s): Primary Diagnosis: H90.3 Bilateral Sensorineural Hearing Loss Signature: Provider: Nadeem Acosta, [facility]
== END 2024-08-12 13:04 | disposition home or self-care (01) ==
LOC: HO.HAP 13:03
PROVIDERS: Visit Provider Internal Medicine
DX: Z46.1 Encounter for fitting and adjustment of hearing aid (principal); H90.3 Sensorineural hearing loss, bilateral
CPT/HCPCS: 92593

== ENCOUNTER 2024-08-15 11:16 | Outpatient (AMB) | payer MEDICARE, SELFPAY ==
[2024-08-15 12:21] VITALS: BP 110/68; PULSE 64; TEMP 36.7; O2SAT 97
--- NOTE | 2024-08-15 12:21 | AM.OFFWIN_ITS ---
Intake Vital Signs 08/15/24 12:21 Weight 172 lb BP 110/68 Blood Pressure Location Lt brachial Position Sitting Pulse 64 Pulse Source Pulse Oximeter Temp 98.1 F Temp Source Oral Pulse Oximetry (%) 97 Oxygen Delivery Method Room Air Intake Visit Reasons: EP Sore throat, cough Intake Note: Patient here for cough, SOB, sore throat that started thursday. Patient Tobacco Use Status: Former Tobacco user Allergies shellfish derived Allergy (Severe, Verified 08/15/24 12:24) severe vomiting/diarrhea Sulfa (Sulfonamide Antibiotics) Allergy (Intermediate, Verified 08/15/24 12:24) RASH/BLISTERS Do you need a note to return to daycare/school/sports/work: No HPI HPI Comments History of Present Illness Details Patient is an 84-year-old female who is a former smoker complaining 3 days of shortness of breath and a cough. She tells me the cough is keeping her up at night in the only thing that ever works for her is to take codeine cough syrup. She tells me she no longer takes the lorazepam. She denies any head congestion, sinus pain or ear pain. She does endorse some shortness of breath but denies a wheeze. She denies a history of asthma or COPD but tells me she quit smoking 7 years ago. She did not test for COVID at home. She tells me she has received her RSV and influenza vaccinations. FORMERLY [facility] Medical History Mitral stenosis CAD (coronary artery disease) Aortic stenosis Osteoarthritis Anxiety Depression Hypothyroid Arthritis HTN (hypertension) Traumatic pneumohemothorax Colitis PTSD (post-traumatic stress disorder) GERD (gastroesophageal reflux disease) Surgical History History of extraction of renal calculus History of total bilateral knee replacement Hx of cataract extraction Hx of cholecystectomy Hx of cardiac catheterization History of esophagogastroduodenoscopy (EGD) H/O colonoscopy Social History Patient Tobacco Use Status: Former Tobacco user Tobacco use type: Cigarette Cigarette Packs Per Day: 0.5 Years Smoked: 25+ Quit 2019. Review of Systems Const All systems reviewed & are unremarkable except as noted in HPI and below Physical Exam Vital Signs: Last Vital Signs Temp 98.1 F 08/15/24 12:21 Pulse 64 08/15/24 12:21 BP 110/68 08/15/24 12:21 Pulse Ox 97 08/15/24 12:21 Oxygen Delivery Method Room Air 08/15/24 12:21 Const General: cooperative, healthy appearing, comfortable and no acute distress Orientation/consciousness: patient oriented x3 Limitations: no limitations HEENT Head: Yes normal to inspection Ears: hearing grossly normal bilaterally, external ears normal and TM's normal bilaterally General nose exam: Normal external nose present, Normal nares present and No nasal discharge present Face and sinus: Yes normal facial exam and Yes sinuses nontender Mouth: Normal oral and palatal mucosa present and moist mucous membranes Throat: Yes tonsils normal, Yes uvula midline and Yes posterior oropharynx abnormal (Erythema) Eyes General: appearance normal, both eyes and all related structures Neck Neck: Yes normal visual inspection Resp Effort & Inspection: normal respiratory effort, able to speak in complete sentences, Actively coughing, no respiratory distress, not tachypneic, no tripod positioning and no use of accessory muscles Auscultation: clear to auscultation bilaterally (dim bilaterally) Cardio Rate: regular rate Rhythm: regular rhythm Heart sounds: normal S1 and S2 Skin General skin exam: no rashes or lesions noted Neuro General: patient oriented x3 Extrem General: Yes normal to inspection and Yes no clubbing, cyanosis or edema Results AMB Rapid Strep AMB Rapid Strep Negative Last Edit by WANDA Harper on 08/15/24 12:47 Results Reviewed Results Reviewed: Laboratory Last Values Strep Scn Rapid Clinic Negative 08/15/24 12:46 Assessment & Plan Assessment & Plan (1) URI, acute: Code(s): J06.9 - Acute upper respiratory infection, unspecified Plan: Vital signs are stable, rapid strep in office was negative. Sent flu COVID and RSV. Due to patient's smoking history, symptoms, dim lung sounds and her age, we will get a chest x-ray. Sent an inhaler to her pharmacy for her shortness of breath. No indication for steroids. Prescribed azithromycin for anti-inflammatory and antibiotic effects, we will get a chest x-ray and add Augmentin, if patient has pneumonia. Orders: Orders AMB Rapid Strep Screen Today Z13.9 - Encounter for screening, unspecified XR chest 2V Today R05.9 - Cough, unspecified SARS-CoV2/FLU/RSV Today J06.9 - Acute upper respiratory infection, unspecified Medications: New codeine-guaifenesin 10-100 mg/5 mL 10 mL PO Q4-6H PRN 120 mL 0RF cold symptoms albuterol sulfate 90 mcg/actuation 2 puffs inhalation Q6H PRN 8.5 grams 0RF shortness of breath or wheezing or cough azithromycin For 250 mg dose pack: take 500 mg today (day 1), then 250 mg for 4 days (days 2-5) PO 6 tabs 0RF codeine-guaifenesin 10-100 mg/5 mL 10 mL PO Q4-6H PRN 120 mL 0RF cold symptoms Coding Level of Care Code New Pt Level 4 (03712) Diagnoses URI, acute J06.9
== END 2024-08-15 13:07 | disposition home or self-care (01) ==
PROVIDERS: PCP Internal Medicine; Visit Provider Physician Assistant
DX: Z13.9 Encounter for screening, unspecified (principal); J06.9 Acute upper respiratory infection, unspecified

== ENCOUNTER 2024-08-15 11:16 | Outpatient (REF) | payer MEDICARE, SELFPAY ==
--- NOTE | ~2024-08-15 | XR_ITS ---
EXAMINATION: XR CHEST CLINICAL INFORMATION: Cough. COMPARISON: CT chest dated 02/05/2024. TECHNIQUE: 2 views of the chest were obtained. FINDINGS: No airspace consolidation. No pleural effusion or pneumothorax. Stable cardiomediastinal silhouette. Right upper quadrant surgical clips. XR/XR chest 2V IMPRESSION: No acute cardiopulmonary findings. Electronically signed by: Alberto Grimes MD 08/15/2024 03:36 PM [facility]
== END 2024-08-15 11:17 | disposition home or self-care (01) ==
LOC: HO.HMGCX 11:16
PROVIDERS: PCP Internal Medicine; Visit Provider Physician Assistant
DX: R05.9 Cough, unspecified (principal); J06.9 Acute upper respiratory infection, unspecified; Z13.9 Encounter for screening, unspecified
CPT/HCPCS: 0241U; 71046; 87880; 99202

== ENCOUNTER 2024-08-15 12:59 | Outpatient (REF) | payer MEDICARE, SELFPAY ==
[2024-08-15 18:59] LABS: Influenza A PCR NEGATIVE (Negative); Influenza B PCR NEGATIVE (Negative); Resp Syncy Virus RNA Qual PCR NEGATIVE (Negative); SARS COV2 PCR INHOUSE NEGATIVE (Negative)
== END 2024-08-15 13:00 | disposition home or self-care (01) ==
LOC: HO.LAB 12:59
PROVIDERS: Visit Provider Physician Assistant
DX: Z13.89 Encounter for screening for other disorder (principal)
CPT/HCPCS: 0241U

== ENCOUNTER → 2025-01-24 07:54 | Outpatient (RCR) | payer MEDICARE, SELFPAY | END | disposition home or self-care (01) | LOC: HO.PTCHIC 08-16 10:48 | PROVIDERS: PCP Internal Medicine; Visit Provider Physician Assistant | DX: Z47.1 Aftercare following joint replacement surgery (principal); Z96.651 Presence of right artificial knee joint | CPT/HCPCS: 97014; 97110; 97116; 97140; 97150; 97161 ==

== ENCOUNTER 2025-07-04 08:33 | Outpatient (REF) | payer SELFPAY ==
--- OUTSIDE RECORDS SUMMARY | 2024-03-25 06:40 | XMS_ITS ---
Author Organization [facility] Address [address] [place] [address] Care Team Providers Care Skein Yarn Drier Name Role Phone Tim LEIVA, Natanael Primary Care Provider Juanjo Kimbrough Jr Unavailable [phone] REASON FOR VISIT Fecal Incontinence Encounters Encounter Location Date Provider Diagnosis [facility] [address] [place] [address] 03/25/2024 Juanjo Lewis Jr Plan Of Treatment No Information Progress Notes * RO SHAH SDOB:1940 (84 yo F)Acc No.[id number]:03/25/2024 Progress Notes Patient: RO CLEVELAND Provider: Quang Lewis MD :1940 A ge:83 Y S ex:Female Date:03/25/2024 Address:[address], [id number] Pcp:Natanael Dumont MD Subjective: * Chief Complaints: * 1 . Fecal Incontinence. * Medical History: Objective: * Vitals: Assessment: Plan: * Treatment: * * The named appointment provid er may or may not be the originator of this progress note, and it is not deemed complete until electronically signed by the appointment provider. Sign off status: Pending * Provider: Quang Lewis MD Date: 0 03/25/2024 Generated for Santoi ng/Fajoleneg/eTransmitting on: 1 09:19 AM EDT
--- OUTSIDE RECORDS SUMMARY | 2024-04-12 05:20 | XMS_ITS ---
Author Organization [facility] Address [address] [place] [address] Care Team Providers Care Salt Operator Name Role Phone Tim LEIVA, Natanael Primary Care Provider Juanjo Kimbrough Jr Unavailable REASON FOR VISIT change in bowel movement Encounters Encounter Location Date Provider Diagnosis [facility] [address] [place], [place] [id number] 04/12/2024 Juanjo Lewis Jr Plan Of Treatment No Information Progress Notes * RO SHAH SDOB:1940 (84 yo F)Acc No.[id number]:04/12/2024 COLON WITH MAC Patient: RO CLEVELAND Provider: Qunag Lewis MD :1940 A ge:83 Y S ex:Female Date:04/12/2024 [facility] [address] [address] [id number] Pcp:Natanael Dumont MD Subjective: * Chief Complaints: * 1 . Change in bowel movement. * Medical History: Objective: * Vitals: Assessment: Plan: * Treatment: * * The named appointment provid er may or may not be the originator of this progress note, and it is not deemed complete until electronically signed by the appointment provider. Sign off status: Pending * Provider: Quang Lewis MD Date: 0 04/12/2024 Generated for Santoi ng/Fajoleneg/eTransmitting on: 1 09:19 AM EDT
--- OUTSIDE RECORDS SUMMARY | 2024-06-08 09:50 | XMS_ITS ---
Author Organization [facility] Address [address] [place] [address] Care Team Providers Care Storm Window Installer Name Role Phone Natanael Dumont MD Primary Care Provider Juanjo Kimbrough Jr Unavailable [phone] REASON FOR VISIT change in bowels Problems Problem Type SNOMED Code ICD Code Onset Dates Problem Status W/U Status Risk Notes Problem Gastro-esophagea l reflux disease without esophagitis ([id number]) Gastro-esophage al reflux disease without esophagitis (K21.9) Active confirmed Encounters Encounter Location Date Provider Diagnosis [facility] [place] Out[facility] [address] [place], [place] [phone] 06/08/2024 Juanjo Lewis Jr Family history of [...] * RO SHAH SDOB:1940 (84 yo F)Acc No.[id number]:06/08/2024 EGD and COL/MAC Patient: RO C[place]AND Provider: Quang Lewis MD :1940 A ge:83 Y S ex:Female Date:06/08/2024 Address:[address] [place] [address] [address], [place], [place] Pcp:Natanael Dumont MD Subjective: * Chief Complaints: * 1 . Change in bowels. * Medical History: Objective: * Vitals: Assessment: * Assessment: 1. F amily history of colon cancer - Z80.0 (Primary) 2 . C hange in bowel movement - R19.4 3 . G kulwant-esophageal reflux disease without esophagitis - K21.9 Plan: * Treatment: * Procedure Codes: G 0105 COLOREC CANCR SCR; COLNSCPY HI RISK, 02501 COLONOSCOPY AND BIOPSY, 0529F INTRVL 3+YRS PTS CLNSCP DOCD, 0528F RCMND FLW-UP 10 YRS DOCD, Modifiers: 1P , 90227 UPPR GI ENDOSCOPY, DIAGNOSIS * * The named appointment provid er may or may not be the originator of this progress note, and it is not deemed complete until electronically signed by the appointment provider. Sign off status: Pending * Provider: Quang Lewis MD Date: Generated for Uche dickinson/Mono/eTransmitting on: 09:18 AM EDT
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
--- OUTSIDE RECORDS SUMMARY | 2025-07-04 09:19 | XMS_ITS | Encounter Summary ---
Author Organization [facility] Address [address] [place] [address] Phone Care Team Providers Care Bread Wrapper Name Role Phone Natanael Dumont MD Primary Care Provider Natanael Dumont MD Unavailable Mikael Omalley DO Unavailable Kodi Hong MD Unavailable Natanael Dumont MD Unavailable Ilya Patel MD Unavailable [phone] Jess León NP Unavailable Unavailabl e Omar Smith MD Unavailable [phone] Deysi Johnson Unavailable Encounter Details Date Type Department Care Team (Late st Contact Info) Description 07/16/2022 Procedure Pass [place] Admitting Dept - Virtual Department [address] [place], [place] [id number] Social History Tobacco Use Types Packs/Day Years Used Date Smoking Tobacco: Never Assessed Comments No Sex and Gender Information Value Date Recorded Sex Assigned at Female 06/22/2020 5:49 PM EDT Legal Sex Female 1:52 PM EST Gender Identity Female 06/22/2020 5:49 PM EDT Sexual Orientation Straight 06/22/2020 5: 49 PM EDT documented as of this encounter Functional Status * Calculated C-SSRS Risk Score (Lifetime/Recent) Answer Date of Assessment Author No Risk Indicated 07/19/2022 2:02 PM Jacy Young RN * [place] Suicide Severity Rating Scale (Screener/Recent Self-Report) Question Answer Date of Assessment Author 1. Wish to be (Past 1 Month) No 022 2:02 PM Leonor Young, CELIA 2. Non-Specific Active Suici inna Thoughts (Past 1 Month) No 07/19/2022 2:02 PM Leonor Young , CELIA 6. Suicidal Behavior (Lifetime) No 2:02 PM Leonor Young RN documented as of this encounter Plan of Treatment Upcoming Encounters Date Type Department Care Team (Late st Contact Info) Description 07/14/2025 11:00 AM EST Office Visit [facility] Internal Medicine [address] [place] [address] Natanael Dumont MD [address] [place] [address] [email or web address] documented as of this encounter Visit Diagnoses Not on filedocumented in this encounter Additional Health Concerns Assessment Noted Time PHQ-2 Depression Total Score: 2 02/26/20 22 11:54 AM EDT documented as of this encounter Care Teams Bread Wrapper Relationship Specialty Start Date End Date Natanael Dumont MD [address] [place] [address] [email or web address] PCP - General Internal Medicine 07/03/22 Mikael Omalley DO [address] [place] [phone] [email or web address] PCP - Hematology/Oncology Hematology and Oncology 06/06/20 04/12/24 Natanael Dumont MD [address] [place] [phone] Internal Medicine 07/03/22 Kodi Hong MD [address] [place] [phone] Internal Medicine 11/10/19 Natanael Dumont MD [address] [place] [phone] Insurance Assigned Provider 12/12/23 Ilya Patel MD [address] [place] [address] Orthopedics & Sports Medicine, [facility] [place] [address] Orthopedic Surgery 05/28/20 Jess León NP [address] [place] [phone] Family Medicine 05/29/20 Omar Smith MD [address] [place] [phone] Urology 10/13/22 Deysi Johnson MBBS [address] [place] [phone] Medical Oncology 04/13/24 documented as of this encounter Additional Source Comments The information contained in this document represents components of the legal health record. It is not the complete legal health record.[facility]
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
--- OUTSIDE RECORDS SUMMARY | 2025-07-04 09:19 | XMS_ITS | Encounter Summary ---
Author Organization [facility] Address [address] [place] [address] Phone Care Team Providers Care Prosthetic Dentist Name Role Phone Natanael Dumont MD Primary Care Provider [phone] Natanael Dumont MD Unavailable Kodi Hong MD Unavailable Natanael Dumont MD Unavailable Ilya Patel MD Unavailable [phone] Jess León NP Unavailable Unavailabl e Omar Smith MD Unavailable [phone] Deysi Johnson Unavailable Encounter Details Date Type Department Care Team (Late st Contact Info) Description 06/13/2024 Prep for Surgery [facility] Orthopedics & Sports Medicine [address] [place] [phone] Daniela Gardner MD [address] [place] [address] Orthopedics & Sports Medicine, [facility] [place] [address] Social History Tobacco Use Types Packs/Day Years [...] with a working camera? Not on file Comments No Sex and Gender Information Value Date Recorded Sex Assigned at Female 06/22/2020 5:49 PM EDT Legal Sex Female 1:52 PM EST Gender Identity Female 06/22/2020 5:49 PM EDT Sexual Orientation Straight 06/22/2020 5: 49 PM EDT documented as of this encounter Plan of Treatment Upcoming Encounters Date Type Department Care Team (Late st Contact Info) Description 07/14/2025 11:00 AM EST Office Visit [facility] Internal Medicine [address] [place] [address] Natanael Dumont MD [address] [place], [place] [phone] [email or web address] documented as of this encounter Visit Diagnoses Not on filedocumented in this encounter Additional Health Concerns Assessment Noted Time PHQ-2 Depression Total Score: 2 03/28/20 24 1:07 PM EDT documented as of this encounter Care Teams Prosthetic Dentist Relationship Specialty Start Date End Date Natanael Dumont MD [address] [place] [address] PCP - General Internal Medicine 07/03/22 Natanael Dumont MD [address] [place] [phone] [email or web address] Internal Medicine 07/03/22 Kodi Hong MD [address] [place] [address] Internal Medicine 11/10/19 Natanael Dumont MD [address] [place] [address] Insurance Assigned Provider 12/12/23 Ilya Patel MD [address] [place] [address] Orthopedics & Sports Medicine, [place] [address] Orthopedic Surgery 05/28/20 Jess León NP [address] [place] [address] Family Medicine 05/29/20 Omar Smith MD [address] [place] [phone] Urology 10/13/22 Deysi Johnson MBBS [address] [place] [phone] Medical Oncology 04/13/24 documented as of this encounter Additional Source Comments The information contained in this document represents components of the legal health record. It is not the complete legal health record.[facility]
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
--- OUTSIDE RECORDS SUMMARY | 2025-07-04 09:20 | XMS_ITS | Encounter Summary ---
Author Organization [facility] Address [address] [place] [address] Phone Care Team Providers Care Funeral Driver Name Role Phone Natanael Dumont MD Primary Care Provider [phone] Natanael Dumont MD Unavailable [phone] Kodi oHng MD Unavailable [phone] Natanael Dumont MD Unavailable Ilya Patel MD Unavailable [phone] Jess León NP Unavailable Unavailabl e Omar Smith MD Unavailable [phone] Deysi Johnson Unavailable Encounter Details Date Type Department Care Team (Late st Contact Info) Description 06/29/2024 Procedure Pass [place] Admitting Dept - Virtual Department [address] [place] [address] Social History Tobacco Use Types Packs/Day Years [...] Description 07/14/2025 11:00 AM EST Office Visit [facility] Internal Medicine [address] [place] [address] Natanael Dumont MD [address] [place] [phone] [email or web address] documented as of this encounter Visit Diagnoses Not on filedocumented in this encounter Additional Health Concerns Assessment Noted Time PHQ-2 Depression Total Score: 2 03/28/20 24 1:07 PM EDT documented as of this encounter Care Teams Funeral Driver Relationship Specialty Start Date End Date Natanael Dumont MD [address] [place] [phone] PCP - General Internal Medicine 07/03/22 Natanael Dumont MD [address] [place] [phone] Internal Medicine 07/03/22 Kodi Hong MD [address] [place] [phone] Internal Medicine 11/10/19 Natanael Dumont MD [address] [place] [phone] [email or web address] Insurance Assigned Provider 12/12/23 Ilya Patel MD [address] [place] [address] Orthopedics & Sports Medicine, [place] [address] Orthopedic Surgery 05/28/20 Jess León NP [address] [place] [address] Family Medicine 05/29/20 Omar Smith MD [address] [place] [phone] Urology 10/13/22 Deysi Johnson MBBS [address] [place] [phone] Medical Oncology 04/13/24 documented as of this encounter Additional Source Comments The information contained in this document represents components of the legal health record. It is not the complete legal health record.[facility]
--- OUTSIDE RECORDS SUMMARY | 2025-07-04 09:20 | XMS_ITS | Encounter Summary ---
Author Organization [facility] Address [address] [place] [address] Phone Care Team Providers Care Back Joiner Name Role Phone Natanael Dumont MD Primary Care Provider [phone] Natanael Dumont MD Primary Care Provider Natanael Dumont MD Unavailable Mikael Omalley DO Unavailable [phone] Kodi Hong MD Unavailable Natanael Dumont MD Unavailable Ilya Patel MD Unavailable Jess León NP Unavailable Unavailabl e Omar Smith MD Unavailable [phone] Deysi Johnson Unavailable Encounter Details Date Type Department Care Team (Late st Contact Info) Description 05/28/2022 Procedure Pass OR Admitting Dept - Virtual Department [address] [place], [place] [phone] Social History Tobacco Use Types Packs/Day Years Used Date Smoking Tobacco: Former Cigarettes 0.5 60 1 957 - 2017 Smokeless Tobacco: Never Alcohol Use Standard Drinks/Week Comments Never 0 (1 standard drink = 0.6 oz pur e alcohol) Comments No Sex and Gender Information Value [...] Description 07/14/2025 11:00 AM EST Office Visit [facility] Internal Medicine [address] [place] [address] Natanael Dumont MD [address] [place] [address] [email or web address] documented as of this encounter Visit Diagnoses Not on filedocumented in this encounter Additional Health Concerns Assessment Noted Time PHQ-2 Depression Total Score: 2 02/26/20 22 11:54 AM EDT documented as of this encounter Care Teams Back Joiner Relationship Specialty Start Date End Date Natanael Dumont MD [address] [place] [address] [email or web address] PCP - General Internal Medicine 04/07/19 07/02/22 Natanael Dumont MD [address] [place] [address] [email or web address] PCP - General Internal Medicine 07/03/22 Mikael Omalley DO [address] [place] [address] [email or web address] PCP - Hematology/Oncology Hematology and Oncology 06/06/20 04/12/24 Natanael Dumont MD [address] [place] [address] Internal Medicine 07/03/22 Kodi Hong MD [address] [place] [address] Internal Medicine 11/10/19 Natanael Dumont MD [address] [place] [address] [email or web address] Insurance Assigned Provider 12/12/23 Ilya Patel MD [address] [place] [address] Orthopedics & Sports Medicine, [place] [address] Orthopedic Surgery 05/28/20 Jess León NP [address] [place] [address] Family Medicine 05/29/20 Omar Smith MD [address] [place] [address] Urology 10/13/22 Deysi Johnson MBBS [address] [place] [address] Medical Oncology 04/13/24 documented as of this encounter Additional Source Comments The information contained in this document represents components of the legal health record. It is not the complete legal health record.[facility]
--- OUTSIDE RECORDS SUMMARY | 2025-07-04 09:20 | XMS_ITS | Encounter Summary ---
Author Organization [facility] Address [address] [place] [address] Phone Care Team Providers Care Automotive Tire Worker Name Role Phone Natanael Dumont MD Primary Care Provider [phone] Natanael Dumont MD Primary Care Provider [phone] Natanael Dumont MD Unavailable [phone] Mikael Omalley DO Unavailable Kodi Hong MD Unavailable Natanael Dumont MD Unavailable [phone] Ilya Patel MD Unavailable [phone] Jess León NP Unavailable Unavailabl e Omar Smith MD Unavailable [phone] Deysi Johnson Unavailable [phone] Encounter Details Date Type Department Care Team (Late st Contact Info) Description 05/08/2022 [facility] [address] [place] [address] Daniela Gardner MD [address] [place] [address] Orthopedics & Sports Medicine, [facility] [place] [address] Social History Tobacco Use Types Packs/Day Years Used Date Smoking Tobacco: Former Cigarettes 0.4 60 1 957 - 2016 Smokeless Tobacco: Never Comments:2-2.5 packs/week, u nsure of quit date Alcohol Use Standard Drinks/Week Comments Yes 0 (1 standard drink = 0.6 oz pur e alcohol) 5 x year if that Comments No Sex and Gender Information Value [...] 07/14/2025 11:00 AM EST Office Visit [facility] Internal Medicine [address] [place] [address] Natanael Dumont MD [address] [place] [address] [email or web address] documented as of this encounter Visit Diagnoses Not on filedocumented in this encounter Additional Health Concerns Assessment Noted Time PHQ-2 Depression Total Score: 2 02/26/20 22 11:54 AM EDT documented as of this encounter Care Teams Automotive Tire Worker Relationship Specialty Start Date End Date Natanael Dumont MD [address] [place] [address] [email or web address] PCP - General Internal Medicine 04/07/19 07/02/22 Natanael Dumont MD [address] [place] [address] [email or web address] PCP - General Internal Medicine 07/03/22 Mikael Omalley DO [address] [place] [address] [email or web address] PCP - Hematology/Oncology Hematology and Oncology 06/06/20 04/12/24 Natanael Dumont MD [address] [place] [address] Internal Medicine 07/03/22 Kodi Hong MD [address] [place] [address] Internal Medicine 11/10/19 Natanael Dumont MD [address] [place] [address] [email or web address] Insurance Assigned Provider 12/12/23 Ilya Patel MD [address] [place] [address] Orthopedics & Sports Medicine, [facility] [place] [address] Orthopedic Surgery 05/28/20 Jess León NP [address] [place] [address] Family Medicine 05/29/20 Omar Smith MD [address] [place] [address] Urology 10/13/22 Deysi Johnson MBBS [address] [place] [address] Medical Oncology 04/13/24 documented as of this encounter Additional Source Comments The information contained in this document represents components of the legal health record. It is not the complete legal health record.[facility]
--- OUTSIDE RECORDS SUMMARY | 2025-07-04 09:20 | XMS_ITS | Encounter Summary ---
Author Organization [facility] Address [address] [place] [address] Phone Care Team Providers Care Air Pollution Analyst Name Role Phone Natanael Dumont MD Primary Care Provider Natanael Dumont MD Unavailable Kodi Hong MD Unavailable [phone] Natanael Dumont MD Unavailable Ilya Patel MD Unavailable [phone] Jess León NP Unavailable Unavailabl e Omar Smith MD Unavailable [phone] Deysi Johnson Unavailable Reason for Visit * Reason Onset Date Comments request for lab orders 06/14/2025 Encounter Details Date Type Department Care Team (Late st Contact Info) Description 06/14/2025 Telephone [facility] [place] Internal Medicine [address] [place], [place] [phone] Natanael Dumont MD [address] [place], [place] [phone] [email or web address] request for lab orders Social History Tobacco Use Types Packs/Day Years [...] PM EDT documented as of this encounter Progress Notes * Eula Muro - 06/27/2025 8:46 AM EDT Left VM for patient - lab orders placed to do before upcoming appt * Natanael Dumont MD - 06/26/2025 7:18 PM EDT Labs ordered, please call and let patient know. * Sirisha Valdovinos [place] - 06/14/2025 3:46 PM EDT Pt contacted office is aware she has upcoming appt with Dr. Dumont on 07/14/25 for MAWV is inquiring if she needs to get labs done prior to MAWV. Pt would like a CB if labs will be ordered. documented in this encounter Plan of Treatment Upcoming Encounters Date Type Department Care Team (Late st Contact Info) Description 07/14/2025 11:00 AM EST Office Visit [facility] Internal Medicine [address] [place] [address] Natanael Dumont MD [address] [place] [address] [email or web address] documented as of this encounter Results * (ABNORMAL) Hemoglobin A1c (06/30/2025 9:24 AM EDT) HEMOGLOBIN A1C 6.0(H) 4.3 - 5.8 % [facility] Blood 06/30/2025 9:24 AM EDT 06/30/2025 9:27 AM EDT us Natanael Dumont MD LAB BLOOD ORDERABLES Final Re sult [address] [address] * (ABNORMAL) Lipid panel (06/30/2025 9:24 AM EDT) HDL 68 mg/dL [facility] Comment: Interpretation <40 mg/dL: Low HDL cholesterol (major risk factor for CHD) Greater than or equal to 60 mg/dL: High HDL cholesterol ( negative risk factor for CHD) HDL - cholesterol is affected by a number of factors, e.g. smoking, excerise, hormones, sex and age. CHOLESTEROL 189 0 - 240 mg/dL [facility] TRIGLYCERIDES 87 30 - 160 mg/dL [facility] LDL 104 50 - 129 mg/dL [facility] Comment: LDL levels in terms of risk for coronary heart disease: <100 mg/dL: Optimal 100-129 mg/dL: Near or above optimal 130-159 mg/dL: Borderline high 160-189 mg/dL: High >190 mg/dL: Very High CARDIAC RISK RATIO 2.8(L) 3.3 - 4.4 [facility] Blood 06/30/2025 9:24 AM EDT 06/30/2025 9:28 AM EDT us Natanael Dumont MD LAB BLOOD ORDERABLES Final Re sult [facility] [address] [place] [address] * (ABNORMAL) Comprehensive metabolic panel (06/30/2025 9:24 AM EDT) SODIUM 137 133 - 146 mmol/L [facility] POTASSIUM 3.9 3.3 - 5.1 mmol/L [facility] CHLORIDE 101 96 - 108 mmol/L [facility] CO2 23 21 - 35 mmol/L [facility] BUN 22(H) 6 - 19 mg/dL [facility] CREATININE 0.70 0.5 - 1.5 mg/dL [facility] GLUCOSE 114(H) 70 - 99 mg/dL [facility] ALBUMIN 4.4 3.9 - 4.8 g/dL [facility] TOTAL PROTEIN 7.5 6.5 - 8.0 g/dL [facility] CALCIUM 9.7 8.4 - 10.3 mg/dL [facility] ALKALINE PHOSPHATASE 71 39 - 117 U/L [facility] TOTAL BILIRUBIN 0.4 0.0 - 1.2 mg/dL [facility] AST 36 0 - 37 U/L [facility] ALT 29 0 - 40 U/L [facility] GLOBULIN 3.1 1 - 4.8 g/dL [facility] EGFR 86 >59 mL/min/1.7 3m2 [facility] Comment:Estimated glomerular filtration rate calculated using the CKD-EPI refit equation. ANION GAP 17 10 - 20 mmol/L [facility] Blood 06/30/2025 9:24 AM EDT 06/30/2025 9:27 AM EDT us Natanael Dumont MD LAB BLOOD ORDERABLES Final Re sult [facility] [address] [place] [address] * (ABNORMAL) CBC and differential (06/30/2025 9:24 AM EDT) WBC 10.43 4.00 - 11.00 K/uL [facility] RBC 4.28 4.00 - 5.20 M/uL [facility] HGB 12.8 12.0 - 16.0 g/dL [facility] HCT 39.7 36.0 - 46.0 % [facility] PLT 278 150 - 450 K/uL [facility] MCV 92.8 80.0 - 100.0 fL [facility] MCH 29.9 27.0 - 31.0 pg [facility] MCHC 32.2 32.0 - 36.0 g/dL [facility] RDW 16.4(H) 11.5 - 14.5 % [facility] MPV 9.2 8.4 - 12.0 fL [facility] NRBC 0.00 0.00 /100 WBCs [facility] ABSOLUTE NRBC 0.00 0.00 K/uL [facility] DIFF METHOD Auto [facility] NEUTS 62.3 48.0 - 76.0 % [facility] LYMPHS 19.7 18.0 - 41.0 % [facility] MONOS 10.5 4.0 - 11.0 % [facility] EOS 6.2(H) 0.0 - 5.0 % [facility] BASOS 0.9 0.0 - 1.5 % [facility] Granulocytes, immature (%) 0.4 0.0 - 0.9 % [facility] ABSOLUTE NEUTS 6.51 1.92 - 7.60 K/uL [facility] ABSOLUTE LYMPHS 2.05 0.72 - 4.10 K/uL [facility] ABSOLUTE MONOS 1.09 0.16 - 1.10 K/uL [facility] ABSOLUTE EOS 0.65(H) 0.00 - 0.50 K/uL [facility] ABSOLUTE BASOS 0.09 0.00 - 0.15 K/uL [facility] Granulocytes, immature 0.04 0.00 - 0.09 K/uL [facility] Blood 06/30/2025 9:24 AM EDT 06/30/2025 9:27 AM EDT us Natanael Dumont MD LAB BLOOD ORDERABLES Final Re sult [facility] [address] [place] [address] documented in this encounter Visit Diagnoses Diagnosis Benign essential hypertension- Primary Essential hypertension, benign Impaired fasting blood sugar Impaired fasting glucose documented in this encounter Additional Health Concerns Assessment Noted Time PHQ-2 Depression Total Score: 2 03/28/20 24 1:07 PM EDT documented as of this encounter Care Teams Air Pollution Analyst Relationship Specialty Start Date End Date Natanael Dumont MD [address] [place] [address] [email or web address] PCP - General Internal Medicine 07/03/22 Natanael Dumont MD [address] [place] [address] Internal Medicine 07/03/22 Kodi Hong MD [address] [place] [address] Internal Medicine 11/10/19 Natanael Dumont MD [address] [place] [address] [email or web address] Insurance Assigned Provider 12/12/23 Ilya Patel MD [address] [place] [address] [facility] [place] [address] [email or web address] Orthopedic Surgery 05/28/20 Jess León NP [address] [place] [address] Family Medicine 05/29/20 Omar Smith MD [address] [place] [address] [email or web address] [email or web address] 10/13/22 Deysi Johnson MBBS [address] [place] [address] [email or web address] Medical Oncology 04/13/24 documented as of this encounter Additional Source Comments The information contained in this document represents components of the legal health record. It is not the complete legal health record.[facility]
--- OUTSIDE RECORDS SUMMARY | 2025-07-04 09:20 | XMS_ITS | Patient Health Record ---
[facility] Address [address] [place], [place] [address] Care Team Providers Care Gantry Rigger Name Role Phone Natanael Dumont MD Primary Care Provider Noemi Hooper Unavailable [phone] Allergies Allergen (clinical drug ingredient) Drug/Non Drug Allergy documented on EMR Reaction Allergy Type Onset Date Status sulfamethoxazole / trimethoprim Bactrim swelling Drug Allergy Active Merthiolate anaphylaxis Drug Allergy Act himanshu shrimp allergenic extract Shrimp (Diagnostic) vomiting,diarrhea Drug Allergy Active Iodinated contrast media (substance) Iodinated Diagnostic Agents anaphylaxis Drug Allergy Active Shellfish (FN) Shellfish-derived Products vomiting,diarrhea Drug Allergy Active Reason For Referral No Information Medications Medication SIG (Take, Route, Frequency, Duration) Notes Start Date End Date Status Lorazepam PRN Active Telmisartan 40 MG Oral; Duration: 90 Active Medrol deloris 4mg as directed orally a s directed; Duration: 6 days 04/22/2022 Active Keflex 500 MG 1 capsule Orally every 12 hrs; Duration: 5 days 04/22/2022 Active Doxycycline Monohydrate 100 MG 1 capsule Orally Once a day; Duration: 10 days 10 days 12/25/2021 Active Esomeprazole Magnesium 20 MG Oral; Duration: 90 Active Physical Therapy . . . 2-3x/week Active Levothyroxine Sodium 137 MCG 1 tablet in the morning on an empty stomach Orally Once a day; Duration: 30 day(s) Active Medrol 4 MG as directed Orally a s directed; Duration: 6 days 05/02/2022 Active Atenolol 25 MG 1 tablet Orally Active Antibiotic Not-Takin g dexAMETHasone 0.5 MG/5ML Oral; Duration: 30 Active Immunizations Vaccine Route Administration Date Status Comme nts COVID-19 Pfizer BioNTech Vaccine Unknown 06/01/2021 Administered 1st 10/10/20 2nd 12/29/20 Social History Tobacco Use: Social History Observation Description Date Details (start date - stop date) Former Smoker NA - NA Tobacco Use/Smoking Question Answer Notes Are you a: former smoker Additional Findings: Tobacco Non-User Current no n-smoker Alcohol Screen Question Answer Notes Did you have a drink containing alcohol in the p ast year? No Points 0 Interpretation Negative Tobacco use other than smoking: Question Answer Notes Are you an other tobacco user? 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) Active confirmed Plan Of Treatment Pending Test Test Name Order Date *Uric Acid, Serum 12/25/2021 *Sedimentation Rate-Westergren X ray : Foot, left 3V 01/22/2022 X ray : Foot, left 3V 04/17/2022 X ray : Foot, left 3V 04/22/2022 X ray : Foot, left 3V 04/29/2022 X ray : Foot, left 3V 05/14/2022 X ray : Foot, left 3V 12/25/2021 Insurance Providers Payer Name Payer Address Payer Phone Subscriber Number Group Number Insured Name Patient Relationship to Insured Coverage Start Date Coverage End Date Medicare National [employer]t [employer] [address] [place] [address] [id number] Ambreen Wayne Self - patient is the insured [employer]. 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 04/16/2022
--- OUTSIDE RECORDS SUMMARY | 2025-07-04 09:20 | XMS_ITS | Encounter Summary ---
Author Organization [facility] Address [address] [place] [address] Phone Care Team Providers Care Orderlies Teacher Name Role Phone Natanael Dumont MD Primary Care Provider Natanael Dumont MD Unavailable Kodi Hong MD Unavailable [phone] Natanael Dumont MD Unavailable [phone] Ilya Patel MD Unavailable [phone] Jess León NP Unavailable Unavailabl e Omar Smith MD Unavailable [phone] Deysi Johnson Unavailable Reason for Visit * Reason Onset Date Comments Insect Bite 05/20/2024 Tick bite bellyb utton-RED Encounter Details Date Type Department Care Team (Late st Contact Info) Description 05/20/2024 Nurse Triage [facility] [address] [place], [place] [phone] Natanael Dumont MD [address] [place], [place] [phone] Insect Bite (Tick bite bellybutton-RED) Social History Tobacco Use Types Packs/Day Years [...] as of this encounter Progress Notes * Allen Love - 05/23/2024 3:47 PM EDT Patient scheduled for appt today at 3 * Dora Michel RN - 05/23/2024 11:13 AM EDT Spoke to Ambreen. States she had a tick bite, had a tick in her belly button. States recently, she had a bad rash, had a temperature, and had body aches, states this was about a month ago. She is concerned it could be tick related. States she noticed on Thursday that her belly button was red, and swollen, and closing to a slit. States she put her finger in there and managed to get a tick out, but it broke in pieces. She wasn't sure if it was engorged, but didn't see any blood when it broke apart.She is unsure how long it was attached. No bullseye rash. States she has a rash on her ankles, Dr Dumont has treated that, and it's finally clearing. No fever or joint pain now. She got 2 pills of doxy cyline that she took at once. She is wondering if she needs further treatment. Will review with PCP. * Gagandeep Okeefe - 05/23/2024 10:55 AM EDT Patient hayden to Urgent care on [facility], [facility], records requested, Patent states tick was removed and only 2 days antibiotics were give. Patient states she feels she may need more. Patient statesshe would like to speak with RN. Please advise. * Natanael Dumont MD - 05/20/2024 6:54 PM EDT Noted * Sandie Floyd RN - 05/20/2024 11:10 AM EDT Nurse Triage Encounter Note Reason for Triage Ambreen Wayne contacted office for Insect Bite Tick bite bellmeetautton-RED Noticed last night, naval area red & slightly painful, was able to remove a piece of it with her finger. Would like to be seen. No available appointments today. Advised to go to . She stated she would go to in Mobile Call Disposition Schedule Same Day Visit/Appt Disposition Comments: Patient/caregiver understands and will follow disposition: Yes Initial Symptom Screening and Assessment IA Symptom Onset Less than 24 hours Symptom Severity Mild - does not interfere with normal activities Location? Other Location Comments naval Skin (localized and widespread) Integumentary symptoms Color change; Redness Location? Trunk New medication? No Cause or source? Tick Bite Line, drain, or appliance? No Recurrant problem? No Care Advice No Care Advice given for this encounter. Patient will call back with additional questions or if symptoms change or worsen Sandie Floyd RN Reason for Disposition and Assessment Reason for Disposition Can't remove live tick (after using Care Advice) Protocols used: Tick [id number] * Letha Jaimes - 05/20/2024 10:53 AM EDT pt called stating thinks has tick in [facility] states its severely red.Please contact and advise. Central Support Retail Interior Designer (Please do not reply to this user; this inbox is not monitored.) Thank you. documented in this encounter Plan of Treatment Upcoming Encounters Date Type Department Care Team (Late st Contact Info) Description 07/14/2025 11:00 AM EST Office Visit [facility] Internal Medicine [address] [place] [address] Natanael Dumont MD [address] [place] [address] [email or web address] documented as of this encounter Visit Diagnoses Not on filedocumented in this encounter Additional Health Concerns Assessment Noted Time PHQ-2 Depression Total Score: 2 03/28/20 24 1:07 PM EDT documented as of this encounter Care Teams Orderlies Teacher Relationship Specialty Start Date End Date Natanael Dumont MD [address] [place] [address] PCP - General Internal Medicine 07/03/22 Natanael Dumont MD [address] [place] [address] Internal Medicine 07/03/22 Kodi Hong MD [address] [place] [address] Internal Medicine 11/10/19 Natanael Dumont MD [address] [place] [address] Insurance Assigned Provider 12/12/23 Ilya Patel MD [address] [place] [address] Orthopedics & Sports Medicine, [facility] [place] [address] Orthopedic Surgery 05/28/20 Jess León [employer] FIELD TECHNICIAN [address] [place] [address] Family Medicine 05/29/20 Omar Smith MD [address] [place] [address] Urology 10/13/22 Deysi Johnson MBBS [address] [place] [address] Medical Oncology 04/13/24 documented as of this encounter Additional Source Comments The information contained in this document represents components of the legal health record. It is not the complete legal health record.[facility]
--- OUTSIDE RECORDS SUMMARY | 2025-07-04 09:20 | XMS_ITS | Encounter Summary ---
Author Organization [facility] Address [address] [place] [address] Phone Care Team Providers Care Brass Sorter Name Role Phone Natanael Dumont MD Primary Care Provider [phone] Natanael Dumont MD Primary Care Provider Natanael Dumont MD Unavailable [phone] Mikael Omalley DO Unavailable [phone] Kodi Hong MD Unavailable [phone] Natanael Dumont MD Unavailable Ilya Patel MD Unavailable [phone] Jess León NP Unavailable Unavailabl e Omar Smith MD Unavailable [phone] Deysi Johnson Unavailable Encounter Details Date Type Department Care Team (Late st Contact Info) Description 05/09/2022 Procedure Pass [facility], Ct Scan - [address] [id number] Social History Tobacco Use Types Packs/Day Years [...] Description 07/14/2025 11:00 AM EST Office Visit [facility] Internal Medicine [address] [place] [address] Natanael Dumont MD [address] [place] [address] [email or web address] documented as of this encounter Visit Diagnoses Not on filedocumented in this encounter Additional Health Concerns Assessment Noted Time PHQ-2 Depression Total Score: 2 02/26/20 22 11:54 AM EDT documented as of this encounter Care Teams Brass Sorter Relationship Specialty Start Date End Date Natanael Dumont MD [address] [place] [address] [email or web address] PCP - General Internal Medicine 04/07/19 07/02/22 Natanael Dumont MD [address] [place] [address] [email or web address] PCP - General Internal Medicine 07/03/22 Mikael Omalley DO [address] [place] [address] [email or web address] PCP - Hematology/Oncology Hematology and Oncology 06/06/20 04/12/24 Natanael Dumont MD [address] [place] [address] Internal Medicine 07/03/22 Kodi Hong MD [address] [place] [id number] Internal Medicine 11/10/19 Natanael Dumont MD [address] [place] [email or web address] Insurance Assigned Provider 12/12/23 Ilya Patel MD [address] [place] [address] Orthopedics & Sports Medicine, [place] [address] Orthopedic Surgery 05/28/20 Jess León NP [address] [place] [id number] Family Medicine 05/29/20 Omar Smith MD [address] [place] [id number] Urology 10/13/22 Deysi Johnson MBBS [address] [place] [id number] Medical Oncology 04/13/24 documented as of this encounter Additional Source Comments The information contained in this document represents components of the legal health record. It is not the complete legal health record.[facility]
--- OUTSIDE RECORDS SUMMARY | 2025-07-04 09:20 | XMS_ITS | Clinical Summary ---
Author Organization [facility] Address [address] [place] [address] Phone Care Team Providers Care Engine Test Cell Technician Name Role Phone Natanael Dumont MD Primary Care Provider [phone] Natanael Dumont MD Unavailable Kodi Hong MD Unavailable Natanael Dumont MD Unavailable Ilya Patel MD Unavailable Jess León NP Unavailable Unavailabl e Omar Smith MD Unavailable [phone] Deysi Johnson Unavailable [phone] Allergies Active Allergy Reactions Criticality Noted Date Comments Benzalkonium Chloride Anaphylaxis High 05/14/2022 Celecoxib Swelling 09/26/2021 Nsaids (Non-Steroidal Anti-Inflammatory Drug) 03/01/2020 Classroom Aide said no nsaids iga def Other Diarrhea,Nausea And Vomiting,Anaphylaxis High 10/02/2014 - [facility] Shellfish Containing Products Anaphylaxis,Diarrhea High 03/01/2020 Sulfa (Sulfonamide Antibiotics) Swelling,Rash,Other (See Comments) Low 04/25/2008 Cold sores on lips Sulfamethoxazole-Trime thoprim 05/14/2022 Other reaction(s): swelling Valsartan Cough 10/01/2020 Medications Medication-Free Text Quick [employer] Nanoemulsified D3K2 Vitamin D 62.5mcg (2500iu) Vitamin K (K2) 90 mcg Take 1 pump by mouth 3 days a week and 2 pump every other day. Active calcium crb,cit/D3/min3 4/kassidy (CITRACAL PLUS BONE DENSITY ORAL) Take 1 tablet by mouth 2 (two) times a day. Active furosemide (LASIX) 20 MG tablet Take 20 mg by mouth 2 (two) times a day. 05/15/20 23 Active dexAMETHasone 0.5 mg/5 mL solutionIndicat ions:Lichen planus Take 5 mL (0.5 mg total) by mouth daily as needed. (Mouth rinse) From dentist for lichen planus 150 mL 2 11/16/19 24 Active LORazepam (ATIVAN) 1 MG tabletIndicatio ns:Anxiety Take 1 tablet (1 mg total) by mouth 2 (two) times a day as needed. 180 tablet 1 05/23/20 24 Active aspirin 81 mg chewable tablet Take 81 mg by mouth daily. Active acetaminophen (TYLENOL) 325 mg tablet Take 2 tablets (650 mg total) by mouth every evening. 100 tablet 1 06/28/20 24 Active Additional Information Patient taking differently:650 mg OralWeekly, Up to twice weekly, Reported on 03/06/2025 allopurinol (ZYLOPRIM) 100 MG tabletIndicatio ns:Tophaceous gout TAKE 1 TABLET TWICE A DAY 180 tablet 3 08/05/20 24 Active esomeprazole (NEXIUM) 20 MG capsuleIndicati ons:Gastroesoph ageal reflux disease without esophagitis TAKE 1 CAPSULE BY MOUTH BEFORE BREAKFAST. 90 capsule 3 12/27/19 25 Active nitroglycerin (NITROSTAT) 0.[address] 0.4 mg under the tongue every 5 (five) minutes as needed for chest pain. 09/29/19 24 Active betamethasone dipropionate 0.05 % cream Apply 1 Application topically. Every 2-3 days on body Active triamcinolone acetonide 0.1 % ointmentIndicat ions:Rash of face APPLY TOPICALLY TWICE A DAY FOR 7 DAYS 15 g 44 02/09/20 25 Active isosorbide mononitrate (IMDUR) 30 MG 24 hr tablet Take 30 mg by mouth daily. Active levothyroxine (SYNTHROID, LEVOTHROID) 137 MCG tabletIndicatio ns:Hypothyroid 1tablet m-f and 1/2 tablet on Saturdays and no tablets on Sundays each week. 80 tablet 3 03/09/20 25 Active telmisartan (MICARDIS) 20 MG tabletIndicatio ns:Primary hypertension TAKE 1 TABLET BY MOUTH DAILY. 90 tablet 3 03/27/20 25 Active atenolol (TENORMIN) 25 MG tabletIndicatio ns:Essential hypertension Take 1 tablet (25 mg total) by mouth daily. 90 tablet 3 06/14/20 25 Active levothyroxine (SYNTHROID, LEVOTHROID) 100 MCG tabletIndicatio ns:Hypothyroid Take 1 tablet (100 mcg total) by mouth every morning. 90 tablet 3 06/14/20 25 Active famotidine (PEPCID) 20 MG tabletIndicatio ns:Gastroesopha geal reflux disease, unspecified whether esophagitis present TAKE 1 TABLET EVERY EVENING NEEDED 90 tablet 3 06/22/20 25 Active atenolol (TENORMIN) 25 MG tabletIndicatio ns:Essential hypertension TAKE 1 TABLET DAILY 90 tablet 3 08/04/20 23 2024 Discontinued(R eorder) famotidine (PEPCID) 20 MG tabletIndicatio ns:Gastroesopha geal reflux disease, unspecified whether esophagitis present Take 1 tablet (20 mg total) by mouth every evening. As needed 90 tablet 3 06/27/20 24 2024 Discontinued Active Problems Problem Noted Date Diagnosed Date Right carpal tunnel syndrome 06/29/2024 Heart valve problem 06/28/2024 Abnormal SPEP 05/10/2024 Assessment & Plan (05/10/2024 3:48 PM EDT): 83-year-old female MGUS (monoclonal gammopathy of unknown significa nce) 05/10/2024 Assessment & Plan (12/13/2024 8:34 AM EDT): 84-year-old female with resolved leukocytosis ( WBC at upper limit of normal ) , selective IgA deficiency, asymptomatic, and the presence of trace IgG lambda paraprotein in the serum with no significant anemia, renal dysfunction, hypercalcemia or progressive fatigue. Rpt SPEP has been negative x 2 occasions. SFLC ratio was normal with 24 hour urine UPEP negative. Her likely diagnosis is MGUS. I have educated her regarding the natural history and clinical significance of MGUS. 12 month follow up is appropriate. All questions were answered to her satisfaction. She is aware that she should be seen earlier if any new concerns. Assessment & Plan (05/25/2024 10:50 AM EDT): 83-year-old female with resolved leukocytosis ( WBC at upper limit of normal ) , selective IgA deficiency, asymptomatic, and the presence of trace IgG lambda paraprotein in the serum with no significant anemia, renal dysfunction, hypercalcemia or progressive fatigue. Rpt SPEP was negative. SFLC ratio was normal with 24 hour urine UPEP negative. Her likely diagnosis is MGUS. I have educated her regarding the natural history and clinical significance of MGUS. 6 month follow up is appropriate, followed by annual visits if stable with a trace of M protein at the 6 month visit. All questions were answered to her satisfaction. She is aware that she should be seen earlier if any new concerns. Assessment & Plan (05/13/2024 6:12 PM EDT): 83-year-old female with resolved leukocytosis, selective IgA deficiency, asymptomatic and the presence of IgG lambda paraprotein in the serum with no significant anemia, renal dysfunction, hypercalcemia or progressive fatigue. 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 I have educated her regarding the natural history and clinical significance of MGUS. Further investigations are requested as below. All questions were answered to her satisfaction. Atherosclerosis of [place] ronary artery of [place] heart without angina pectoris 03/28/2024 Hallux rigidus of left foot 03/26/2022 Assessment & Plan (03/26/2022 11:54 AM EDT): Preop exam negative for any pathology that would require cardiovascular assessment. Going forward may be considered to reduce or discontinue the atenolol if symptomatic bradycardia but that was not the case today. Labs ordered in February within the timeframe of the surgery supporting decision to proceed with the upcoming surgery. Patient will follow-up with the primary care physician in June. AV block, 1st degree 03/26/2022 Assessment & Plan (03/26/2022 11:50 AM EDT): This is an incidental finding on the EKG. It should be noted however and if patient is having increased fatigue, orthostasis then would suggest reduction of atenolol or discontinuation. Heart murmur 03/26/2022 Assessment & Plan (03/26/2022 11:54 AM EDT): Independent of the surgery, patient may proceed with the upcoming surgery, consider a follow-up echocardiogram at a later date to further delineate. Cubital tunnel syndrome on left 02/27/2022 S/P total knee replacement, right 06/22/2020 Preop examination 05/31/2020 Primary osteoarthritis of right knee 05/08/2020 Age-related osteoporosis wit hout current pathological fracture 11/23/2018 Anxiety disorder 01/27/2018 Cataract 01/27/2018 Depression 01/27/2018 Gastroesophageal reflux disease without esophagi tis 01/27/2018 Hypertension 01/27/2018 Assessment & Plan (03/26/2022 11:49 AM EDT): Appears to be well controlled, will continue current antihypertensives, most recent electrolytes kidney function normal. Hyperlipidemia 01/27/2018 Hypothyroid 01/27/2018 Assessment & Plan (03/26/2022 11:49 AM EDT): Patient will maintain on the current dosing of levothyroxine with most recent TSH within normal limits and no signs of hypo or hyperthyroidism. Insomnia 01/27/2018 Osteoarthritis 01/27/2018 Platelet disorder 01/27/2018 Overview (06/07/2020): Images from the original note were not included. Patient was initially seen by Dr. Vann in 2013 for easy bruising however no significant history of bleeding. Initial coagulation work-up was negative. Patient underwent platelet aggregation studies which showed a very small defect of undetermined significance. She was seen by Dr. Lizbet Rizo as a second opinion on August 292013. It was discussed that the patient also was noted to have an IgA deficiency in about 1 and 100 patients with an IgA deficiency can perform anti-IgA antibodies and experience allergic reactions with blood product transfusions with plasma. She had discussed in the setting of allergic reaction standard therapy with Benadryl and steroids are administered. If reactions were to happen IgA antibodies can be sought in patients could thereafter received washed blood products. She also discussed the uncertainty of platelet aggregation disorders and platelet aggregation studies. In the absence of significant clinical bleeding was felt that the significance was unknown. The feeling was that given no prior surgical bleeding complications no special therapy would be required. Sometimes platelet transfusions can be considered if there is any postoperative bleeding. Primary osteoarthritis involving multiple joints 01/27/2018 Pain of right hand 01/27/2018 Erythema migrans (Lyme disease) 01/27/2018 Assessment & Plan (02/16/2018 7:47 AM EDT): Improved sx. Reassured re: normal exam today. Plan to continue probiotic. Continue monitoring for any add'l skin lesions. Please f/u if any recurrent sx or concerns. [facility]; will reach out to pt re: re-establishing. Pt to f/u if another referral desired. Trial triamcinolone given dry skin refractory to OTC hydrocortisone. Used sparingly no longer than 2 weeks. Pt demonstrates understanding. Assessment & Plan (01/27/2018 6:56 AM EDT): Given presentation, await Lyme IgG/IgM. Discussed tx options with doxycycline. Pt agreeable to await results that should be reported tomorrow morning. Discussed add'l tick borne illnesses and potential need for testing. Pt will continue to monitor the rash and will f/u if any further/worsening sx or skin changes. Reviewed EKG with pt. As stable today, please return home and rest. Increase hydration given dizziness. Pt accompanied by relative and does not need to drive or be out this evening. Reviewed how to reach office after hours as needed. Call place to Dr. De La Garza's office re: assuming pt's care. Needs f/u for arthritis, chronic pain. 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 Encounter for preoperative s creening laboratory testing for COVID-19 virus Resolved Problems Problem Noted Date Diagnosed Date Resolved Date Erythema multiforme 01/26/2018 01/28/20 18 Assessment & Plan (01/27/2018 6:53 AM EDT): Given presentation Encounters Date Type Department Care Team Description 06/30/2025 9:27 AM EDT - 06/30/2025 11:59 PM EDT Hospital Encounter [facility] Laboratory [address] [place] [address] Natanael Dumont MD Discharge Disposition: Home or Self Care 06/22/2025 Refill [facility] Internal Medicine [address] [place] [address] Natanael Dumont MD Medication Refill 06/14/2025 Telephone [facility] Internal Medicine [address] [place] [address] Natanael Dumont MD request for lab orders 06/13/2025 Refill [facility] Internal Medicine [address] [place] [address] Natanael Dumont MD Medication Refill 05/17/2025 11:55 AM EDT - 05/17/2025 11:59 PM EDT Hospital Encounter [facility] Laboratory [address] [facility] [place] [address] Natanael Dumont MD Discharge Disposition: Home or Self Care from Last 3 Months Immunizations Immunization Administration Dates Next Due COVID-19 (Pre-06/29) Moderna Vaccine, Bivalent 6mo+ 06/11/2022 COVID-19 (Pre-06/29) Pfizer Vaccine, mRNA, PF 10/31/2020,10/10/2020 COVID-19 Moderna Spikevax Vaccine 12+ 06/12/2023 INFLUENZA, SPLIT VIRUS, TRIV ALENT W/ PRESERVATIVE IM 06/15/2012 Influenza High-Dose Quadriva lent Preservative Free IM 06/08/2023,06/03/2022,06/23/2021,04/26 Influenza High-Dose Trivalen t Preservative Free IM 05/23/2024,06/27/2019,05/25/2018,06/06,05/29/2014 Influenza, Unspecified Formulation 06/19/2022,,06/27/2010 Pneumococcal conjugate PCV13 07/19/2015 Pneumococcal polysaccharide PPSV23 02/25/2022, RSV Vaccine (bivalent) 05/30/2024 Td (adult) 5 Lf Tetanus Toxo id, PF, Adsorbed 09/07/2003 Tdap 01/01/2021,09/29/2013 Zoster live 09/07/2007 Zoster recombinant 05/27/2019,03/29/2019 Family History Medical History Relation Comments Heart disease Father Colon cancer Mother Breast cancer Sister 1 Diabetes Sister 1 Stroke Sister 1 Atrial fibrillation Sister 2 Diabetes Sister 2 Stroke Sister 2 Relation Status Comments Brother Father Mother Sister 1 Alive heart valve repl acement at 78 y/o Sister 2 Alive Social History Tobacco Use Types Packs/Day Years Used Date Smoking Tobacco: Former Cigarettes 0.5 60 1 957 - 2017 Smokeless Tobacco: Never Tobacco Cessation:Counseling Given: Not Answered Alcohol Use Standard Drinks/Week Comments Yes 0 [...] Orientation Straight 06/22/2020 5: 49 PM EDT Last Filed Vital Signs Vital Sign Reading Time Taken Comments Blood Pressure 118/64 03/06/2025 1:33 PM EDT Pulse 63 03/06/2025 1:33 PM EDT Temperature 36.8 C (98.3 F) 03/06/2025 1:33 PM EDT Respiratory Rate 16 12/27/2024 12:47 PM EDT Oxygen Saturation 96% 03/06/2025 1:33 PM EDT Inhaled Oxygen Concentration - - Weight 79.4 kg (175 lb) 03/06/2025 1:33 PM EDT Height 157.5 cm (5' 2.01 ) 03/06/2025 1:33 PM ED T Body Mass Index 32 03/06/2025 1:33 PM EDT Plan of Treatment Upcoming Encounters Date Type Department Care Team (Late st Contact Info) Description 07/14/2025 11:00 AM EST Office Visit [facility] Internal Medicine [address] [place] [address] Natanael Dumont MD [address] [place] [address] [email or web address] Health Maintenance Due Date Last Done Comments FOLLOW UP BONE DENSITY TESTING 10/08/2024 10/08/2022, 09/25/2022, 08/14/2022, Additional history exists DEPRESSION SCREENING 03/28/2025 03/28/2024 INFLUENZA VACCINE (#1) 2025 , 06/08/2023, 06/19/2022, Additional history exists COVID-19 VACCINE ( season) 2025 06/12/2023, 01/13/2023, 06/11/2022, Additional history exists BLOOD PRESSURE 09/05/2025 03/06/2025 TSH LEVEL 05/17/2026 05/17/2025, 02/07, 12/27/2024, Additional history exists CREATININE LEVEL 06/30/2026 06/30/2025, , 12/27/2024, Additional history exists LIPID PANEL 06/30/2026 06/30/2025, 12/07, 03/22/2024, Additional history exists POTASSIUM LEVEL 06/30/2026 06/30/2025, 02/07, 12/27/2024, Additional history exists Adult Td,Tdap Booster 01/01/2031 01/01/2021 , 09/29/2013, 09/07/2003 ZOSTER VACCINES Completed 05/27/2019, 03/08, 09/07/2007 PNEUMOCOCCAL VACCINES (50+ years) Completed 02/25/2022, 07/19/2015, 10/08/2008 OSTEOPOROSIS SCREENING INITIAL (ONE-TIME) Completed 10/08/2022, 09/25/2022, 08/14/2022, Additional history exists RSV VACCINE Completed 05/30/2024 HEPATITIS A VACCINES Aged Out No long er eligible based on patient's age to complete this topic HIB VACCINES Aged Out No longer eligi ble based on patient's age to complete this topic MENINGOCOCCAL VACCINES (ACWY) Aged Out No longer eligible based on patient's age to complete this topic MENINGOCOCCAL VACCINES (B) Aged Out N o longer eligible based on patient's age to complete this topic Medical Devices Implanted Type Area Machine Greaser Device Identifier Shelf Expiration Date Model / Serial / Lot Lens Lens Bilatera l: Eye Prosthetic Joint Prosthetic Joint Left: Knee Peg 31x8mm Button Patella Knee Vanguard Uhmwpe 3 Series A Standard - [id number] Implanted:Qty : 1 on 06/22/2020 by Ilya Patel MD at [facility] STANDARD Right: Knee [employer] 03/27/2025 [id number] / / [id number] Knee Tray 67mm Plate Bone Primary Vanguard Titanium Revision Interlock Cemented - [id number] Implanted:Qty : 1 on 06/22/2020 by Ilya Patel MD at [facility] Right: Knee [employer] 03/06/2030 [id number] / / [id number] Cement Bone Biomet Standard R 1x40 Us - [id number] Implanted:Qty : 1 on 06/22/2020 by Ilya Patel MD at [facility] Right: Knee SHABBIR / DIV OF [employer]RISTOL SQUIBB 01/04/2022 [id number] / / [id number] Beam I L 40mm Od 10 Computer Game Tester Stem Knee Prmary Stablzed Fnned Mpl Ascent Maxm - [id number] Implanted:Qty : 1 on 06/22/2020 by Ilya Patel MD at [facility] Right: Knee [employer] 11/30/2029 [id number] / / [id number] Box Component 62.5mm Femoral Vanguard Titanium Posterior Stabilizied Right - [id number] Implanted:Qty : 1 on 06/22/2020 by Ilya Patel MD at [facility] Right: Knee [employer] 11/30/2029 [id number] / / [id number] Knee Insert 63/10u21go Implant Bring Vanguard 05 - [id number] Implanted:Qty : 1 on 06/22/2020 by Ilya Patel MD at [facility] Right: Knee [employer] 10/11/2024 [id number] / / [id number] Stent Ureteral 7frx22 To 30cm Double Pigtail Suture Stretch Vl Positioner - [id number] Implanted:Qty : 1 on 07/16/2022 by Omar Smith MD at [facility] Left: Ureter [employer] [id number] 03/02/2025 [id number] / / [id number] Procedures Procedure Name Priority Date/Time Associated Diagnosis Comments CBC AND DIFFERENTIAL Routine 06/30/2025 9:24 AM EDT Benign essential hypertension COMPREHENSIVE METABOLIC PANEL Routine 06/30/2025 9:24 AM EDT Benign essential hypertension LIPID PANEL Routine 06/30/2025 9:24 AM EDT Benign essential hypertension HEMOGLOBIN A1C Routine 06/30/2025 9:24 AM EDT Impaired fasting blood sugar TSH WITH REFLEX Routine 05/17/2025 11:51 AM EDT Acquired hypothyroidism HM DEXA SCAN Routine 10/08/2022 from Last 3 Months or Most Recently Relevant to Health Maintenance Results * (ABNORMAL) Comprehensive metabolic panel (06/30/2025 9:24 AM EDT) SODIUM 137 133 - 146 mmol/L [facility] POTASSIUM 3.9 3.3 - 5.1 mmol/L [facility] CHLORIDE 101 96 - 108 mmol/L [facility] CO2 23 21 - 35 mmol/L [facility] BUN 22(H) 6 - 19 mg/dL [facility] CREATININE 0.70 0.5 - 1.5 mg/dL [facility] GLUCOSE 114(H) 70 - 99 mg/dL [facility] ALBUMIN 4.4 3.9 - 4.8 g/dL [facility] TOTAL PROTEIN 7.5 6.5 - 8.0 g/dL [facility] CALCIUM 9.7 8.4 - 10.3 mg/dL [facility] ALKALINE PHOSPHATASE 71 39 - 117 U/L [facility] TOTAL BILIRUBIN 0.4 0.0 - 1.2 mg/dL [facility] AST 36 0 - 37 U/L [facility] ALT 29 0 - 40 U/L [facility] GLOBULIN 3.1 1 - 4.8 g/dL [facility] EGFR 86 >59 mL/min/1.7 3m2 [facility] Comment:Estimated glomerular filtration rate calculated using the CKD-EPI refit equation. ANION GAP 17 10 - 20 mmol/L [facility] Blood 06/30/2025 9:24 AM EDT 06/30/2025 9:27 AM EDT us Natanael Dumont MD LAB BLOOD ORDERABLES Final Re sult [facility] [address] [place] [address] * (ABNORMAL) CBC and differential (06/30/2025 9:24 AM EDT) WBC 10.43 4.00 - 11.00 K/uL [facility] RBC 4.28 4.00 - 5.20 M/uL [facility] HGB 12.8 12.0 - 16.0 g/dL [facility] HCT 39.7 36.0 - 46.0 % [facility] PLT 278 150 - 450 K/uL [facility] MCV 92.8 80.0 - 100.0 fL [facility] MCH 29.9 27.0 - 31.0 pg [facility] MCHC 32.2 32.0 - 36.0 g/dL [facility] RDW 16.4(H) 11.5 - 14.5 % [facility] MPV 9.2 8.4 - 12.0 fL [facility] NRBC 0.00 0.00 /100 WBCs [facility] ABSOLUTE NRBC 0.00 0.00 K/uL [facility] DIFF METHOD Auto [facility] NEUTS 62.3 48.0 - 76.0 % [facility] LYMPHS 19.7 18.0 - 41.0 % [facility] MONOS 10.5 4.0 - 11.0 % [facility] EOS 6.2(H) 0.0 - 5.0 % [facility] BASOS 0.9 0.0 - 1.5 % [facility] Granulocytes, immature (%) 0.4 0.0 - 0.9 % [facility] ABSOLUTE NEUTS 6.51 1.92 - 7.60 K/uL [facility] ABSOLUTE LYMPHS 2.05 0.72 - 4.10 K/uL [facility] ABSOLUTE MONOS 1.09 0.16 - 1.10 K/uL [facility] ABSOLUTE EOS 0.65(H) 0.00 - 0.50 K/uL [facility] ABSOLUTE BASOS 0.09 0.00 - 0.15 K/uL [facility] Granulocytes, immature 0.04 0.00 - 0.09 K/uL [facility] Blood 06/30/2025 9:24 AM EDT 06/30/2025 9:27 AM EDT us Natanael Dumont MD LAB BLOOD ORDERABLES Final Re sult [facility] [address] [place] [address] * (ABNORMAL) Hemoglobin A1c (06/30/2025 9:24 AM EDT) HEMOGLOBIN A1C 6.0(H) 4.3 - 5.8 % [facility] Blood 06/30/2025 9:24 AM EDT 06/30/2025 9:27 AM EDT us Natanael Dumont MD LAB BLOOD ORDERABLES Final Re sult [address] [address] * (ABNORMAL) Lipid panel (06/30/2025 9:24 AM EDT) HDL 68 mg/dL [facility] Comment: Interpretation <40 mg/dL: Low HDL cholesterol (major risk factor for CHD) Greater than or equal to 60 mg/dL: High HDL cholesterol ( negative risk factor for CHD) HDL - cholesterol is affected by a number of factors, e.g. smoking, excerise, hormones, sex and age. CHOLESTEROL 189 0 - 240 mg/dL [facility] TRIGLYCERIDES 87 30 - 160 mg/dL [facility] LDL 104 50 - 129 mg/dL [facility] Comment: LDL levels in terms of risk for coronary heart disease: <100 mg/dL: Optimal 100-129 mg/dL: Near or above optimal 130-159 mg/dL: Borderline high 160-189 mg/dL: High >190 mg/dL: Very High CARDIAC RISK RATIO 2.8(L) 3.3 - 4.4 [facility] Blood 06/30/2025 9:24 AM EDT 06/30/2025 9:28 AM EDT us Natanael Dumont MD LAB BLOOD ORDERABLES Final Re sult [address] [address] * TSH with reflex (05/17/2025 11:51 AM EDT) TSH 1.24 0.27 - 4.20 uIU/mL [facility] Blood 05/17/2025 11:5 1 AM EDT 05/17/2025 11:54 AM EDT us Natanael Dumont MD LAB BLOOD ORDERABLES Final Re sult [facility] [address] [place] [address] * DEXA SCAN (10/08/2022) us Natanael Dumont MD HEALTH MAINTENANCE Edited Res ult - Final from Last 3 Months or Most Recently Relevant to Health Maintenance Insurance [facility] MEDEX SUPPLEMENT MEDICARE PART A & B [employer] MEDEX SUPPLEMENT MEDICARE PART A & B [employer] MEDEX SUPPLEMENT MEDICARE PART A & B [employer] MEDEX SUPPLEMENT MEDICARE PART A & B [employer] MEDEX SUPPLEMENT MEDICARE PART A & B MEDICARE PART A & B [employer] MEDEX SUPPLEMENT MEDICARE PART A & B [facility] MEDEX SUPPLEMENT MEDICARE PART A & B [employer] CROSS MEDEX SUPPLEMENT MEDICARE PART A & B MEDICARE PART A & B [employer] MEDEX SUPPLEMENT MEDICARE PART A & B [employer] MEDEX SUPPLEMENT MEDICARE PART A & B [employer] MEDEX SUPPLEMENT MEDICARE PART A & B [employer] CROSS MEDEX SUPPLEMENT MEDICARE PART A & B [employer] CROSS MEDEX SUPPLEMENT [employer] CROSS MEDEX SUPPLEMENT MEDICARE PART A & B [employer] CROSS MEDEX SUPPLEMENT MEDICARE PART A & B [employer] MEDEX SUPPLEMENT MEDICARE PART A & B [facility] MEDEX SUPPLEMENT [employer] [address] [place] [address] Advance Directives For more information, please contact: [phone] (9AM - 5PM [facility], Thursday-Thursday) Documents on File Type Date Recorded Patient Marketing Editor Expl anation Healthcare Proxy 06/26/2020 10:08 AM MOLST 12/25/2020 MOLST 12/25/20 * Full Code (Latest Code Status on File) Date Activated Date Inactivated Comments 06/22/2020 11:14 AM Question Answer Comments Code Status Confirmed With: Patient Care Teams Engine Test Cell Technician Relationship Specialty Start Date End Date Natanael Dumont MD [address] [place] [address] [email or web address] PCP - General Internal Medicine 07/03/22 Natanael Dumont MD [address] [place] [address] [email or web address] Internal Medicine 07/03/22 Kodi Hong MD [address] [place] [address] Internal Medicine 11/10/19 Natanael Dumont MD [address] [place] [address] [email or web address] Insurance Assigned Provider 12/12/23 Ilya Patel MD [address] [place] [address] Orthopedics & Sports Medicine, [place] [address] [email or web address] Orthopedic Surgery 05/28/20 Jess León NP [address] [place] [address] Family Medicine 05/29/20 Omar Smith MD [address] [place] [address] Urology 10/13/22 Deysi Johnson MBBS [address] [place] [address] [email or web address] Medical Oncology 04/13/24 Additional Source Comments The information contained in this document represents components of the legal health record. It is not the complete legal health record.[facility]
== END 2025-07-04 08:34 | disposition home or self-care (01) ==
LOC: HO.HAP 08:33
PROVIDERS: Visit Provider Internal Medicine
DX: Z46.1 Encounter for fitting and adjustment of hearing aid (principal); H90.3 Sensorineural hearing loss, bilateral
CPT/HCPCS: 92593; V5267

== ENCOUNTER 2025-07-27 08:02 | Outpatient (REF) | payer SELFPAY ==
--- OUTSIDE RECORDS SUMMARY | 2024-03-25 05:40 | XMS_ITS ---
Author Organization [facility] Address [address] [place] [address] Care Team Providers Care Database Management Specialist Name Role Phone Tim LEIVA, Natanael Primary Care Provider Juanjo Kimbrough Jr REASON FOR VISIT Fecal Incontinence Encounters Encounter Location Date Provider Diagnosis [facility] [address] [place] [address] 03/25/2024 Juanjo Lewis Jr Plan Of Treatment No Information Progress Notes * RO SHAH SDOB:1940 (84 yo F)Acc No.[id number]:03/25/2024 Progress Notes Patient: RO CLEVELAND Provider: Quang Lewis MD :1940 A ge:83 Y S ex:Female Date:03/25/2024 Address:[address] [place] [address] [address], [id number] Pcp:Natanael Dumont MD Subjective: * Chief Complaints: * F ecal Incontinence * The named appointment provid er may or may not be the originator of this progress note, and it is not deemed complete until electronically signed by the appointment provider. Sign off status: Pending * Provider: Quang Lewis MD Date: 0 03/25/2024 Generated for Uche dickinson/Mono/eTransmitting on: 09/26/2024 08:20 AM EST
--- OUTSIDE RECORDS SUMMARY | 2024-06-08 08:50 | XMS_ITS ---
Author Organization [facility] Address [address] [place] [address] Care Team Providers Care Communication Signals Intelligence Name Role Phone Natanael Dumont MD Primary Care Provider Juanjo Kimbrough Jr Unavailable [phone] REASON FOR VISIT change in bowels Problems Problem Type SNOMED Code ICD Code Onset Dates Problem Status W/U Status Risk Notes Problem Gastro-esophagea l reflux disease without esophagitis (674587692) Gastro-esophage al reflux disease without esophagitis (K21.9) Active confirmed Encounters Encounter Location Date Provider Diagnosis [facility] [address], [place] [id number] 06/08/2024 Juanjo Lewis Jr Family history of colon cancer Z80.0 ; Change in bowel movement R19.4 and Gastro-esophageal reflux disease without esophagitis K21.9 Assessments Encounter Date Diagnosis (ICD Code) Assessment Notes Treatment Notes Treatment Clinical Notes Section Notes 06/08/2024 Family history of colon cancer (ICD-10 - Z80.0) 06/08/2024 Change in bowel movement (ICD-10 - R19.4) 06/08/2024 Gastro-esophagea l reflux disease without esophagitis (ICD-10 - K21.9) Plan Of Treatment No Information Progress Notes * RO SHAH SDOB:1940 (84 yo F)Acc No.[id number]:06/08/2024 EGD and COL/MAC Patient: RO C[place]AND Provider: Quang Lewis MD :1940 A ge:83 Y S ex:Female Date:06/08/2024 Address:[address] [place] [address] [address], [place], [place] Pcp:Natanael Dumont MD Subjective: * Chief Complaints: * C hange in bowels Assessment: * Assessment: 1. F amily history of colon cancer - Z80.0 (Primary) 2 . C hange in bowel movement - R19.4 3 . G kulwant-esophageal reflux disease without esophagitis - K21.9 Plan: * Procedure Codes: G 0105 COLOREC CANCR SCR; COLNSCPY HI [id number] COLONOSCOPY AND [id number] INTRVL 3+YRS PTS CLNSCP [id number] RCMND FLW-UP 10 YRS DOCD, Modifiers: 1P 06495 UPPR GI ENDOSCOPY, DIAGNOSIS Billing Information: * Procedure Codes: G0105 COLOREC CANCR SCR; COLNSCPY HI RISK. 53814 COLONOSCOPY AND BIOPSY. 0529F INTRVL 3+YRS PTS CLNSCP DOCD. 0528F RCMND FLW-UP 10 YRS DOCD. Modifiers: 1P 71085 UPPR GI ENDOSCOPY, DIAGNOSIS. * The named appointment provid er may or may not be the originator of this progress note, and it is not deemed complete until electronically signed by the appointment provider. Sign off status: Pending * Provider: Quang Lewis MD Date: Generated for Uche dickinson/Mono/Gabrielaitting on: 09/26/2024 08:19 AM EST
--- OUTSIDE RECORDS SUMMARY | 2025-07-27 08:19 | XMS_ITS | Encounter Summary ---
Author Organization [facility] Address [address] [place] [address] Phone Care Team Providers Care Design Tech Name Role Phone Natanael Dumont MD Primary Care Provider Natanael Dumont MD Unavailable Mikael Omalley DO Unavailable Kodi Hong MD Unavailable Natanael Dumont MD Unavailable Ilya Patel MD Unavailable [phone] Jess León NP Unavailable Unavailabl e Omar Smith MD Unavailable [phone] Deysi Johnson Unavailable [phone] Encounter Details Date Type Department Care Team (Late st Contact Info) Description 07/16/2022 Procedure Pass OR Admitting Dept - Virtual Department [address] [place], [place] [phone] Social History Tobacco Use Types Packs/Day Years [...] 07/19/2022 2:02 PM Jacy Young RN * [place] Suicide Severity Rating Scale (Screener/Recent Self-Report) Question [...] Care Team (Late st Contact Info) Description 12/15/2025 11:30 AM EDT Office Visit [facility] Internal Medicine [address] [place] [address] Natanael Dumont MD [address] [place] [address] [email or web address] documented as of this encounter Visit Diagnoses Not on filedocumented in this encounter Additional Health Concerns Assessment Noted Time PHQ-2 Depression Total Score: 2 02/26/20 22 11:54 AM EDT documented as of this encounter Care Teams Design Tech Relationship Specialty Start Date End Date Natanael Dumont MD [address] [place] [address] [email or web address] PCP - General Internal Medicine 07/03/22 Mikael Omalley DO [address] [place] [address] [email or web address] PCP - Hematology/Oncology Hematology and Oncology 06/06/20 04/12/24 Natanael Dumont MD [address] [place] [address] Internal Medicine 07/03/22 Kodi Hong MD [address] [place] [address] Internal Medicine 11/10/19 Natanael Dumont MD [address] [place] [address] Insurance Assigned Provider 12/12/23 Ilya Patel MD [address] [place] [address] Orthopedics & Sports Medicine, [facility] [place] [address] Orthopedic Surgery 05/28/20 Jess León NP [address] [place] [address] Family Medicine 05/29/20 Omar Smith MD [address] [place] [address] Urology 10/13/22 Deysi Johnson MBBS [address] [place] [address] Medical Oncology 04/13/24 documented as of this encounter Additional Source Comments The information contained in this document represents components of the legal health record. It is not the complete legal health record.[facility]
--- OUTSIDE RECORDS SUMMARY | 2025-07-27 08:19 | XMS_ITS | Encounter Summary ---
Author Organization [facility] Address [address] [place] [address] Phone Care Team Providers Care Banbury Operator Name Role Phone Natanael Dumont MD Primary Care Provider [phone] Natanael Dumont MD Primary Care Provider Natanael Dumont MD Unavailable [phone] Mikael Omalley DO Unavailable [phone] Kodi Hong MD Unavailable [phone] Natanael Dumont MD Unavailable Ilya Patel MD Unavailable Jess León NP Unavailable Unavailabl e Omar Smith MD Unavailable [phone] Deysi Johnson Unavailable Encounter Details Date Type Department Care Team (Late st Contact Info) Description 06/22/2020 Procedure Pass OR Admitting Dept - Virtual Department 30 [place], [place] [phone] Social History Tobacco Use Types Packs/Day Years [...] Description 12/15/2025 11:30 AM EDT Office Visit [facility] Internal Medicine [address] [place] [address] Natanael Dumont MD [address] [place] [address] documented as of this encounter Visit Diagnoses [...] documented as of this encounter Care Teams Banbury Operator Relationship Specialty Start Date End Date Natanael Dumont MD [address] [place] [address] PCP - General Internal Medicine 04/07/19 07/02/22 Natanael Dumont MD [address] [place] [address] PCP - General Internal Medicine 07/03/22 Mikael Omalley DO [address] [place] [id number] [email or web address] PCP - Hematology/Oncology Hematology and Oncology 06/06/20 04/12/24 Natanael Dumont MD [address] [place] [address] [email or web address] Internal Medicine 07/03/22 Kodi Hong MD [address] [place] [address] Internal Medicine 11/10/19 Natanael Dumont MD [address] [place] [address] [email or web address] Insurance Assigned Provider 12/12/23 Ilya Patel MD [address] [place] [address] Orthopedics & Sports Medicine, [place] [address] Orthopedic Surgery 05/28/20 Jess León NP [address] [place] [address] Family Medicine 05/29/20 Omar Smith MD [address] [place] [address] Urology 10/13/22 Deysi Johnson MBBS [address] [place] [address] Medical Oncology 04/13/24 documented as of this encounter Additional Source Comments The information contained in this document represents components of the legal health record. It is not the complete legal health record.[facility]
--- OUTSIDE RECORDS SUMMARY | 2025-07-27 08:20 | XMS_ITS | Patient Health Record ---
Author Organization [facility] Address [address] [facility] [place], [place] [address] Care Team Providers Care Department Mgr Name Role Phone Natanael Dumont MD Primary Care Provider Noemi Hooper Unavailable [phone] Allergies Allergen (clinical drug ingredient) Drug/Non Drug [...] Status Risk Notes Problem Acquired hallux rigidus (5591720) Hallux rigidus, left foot (M20.22) Active confirmed Problem Acquired hallux valgus (24417262) Hallux valgus (acquired), left foot (M20.12) Active confirmed Problem Primary gout (19783259) Idiopathic gout, 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) Active confirmed Problem Localized, primary osteoarthritis of the ankle and/or foot (394833434) Osteoarthritis of left ankle and foot (M19.072) Active confirmed Problem Gouty arthritis of left foot (1618835714627532 ) Gouty arthritis of left foot (M10.9) [...] [employer] [address] [place] [address] [id number] Ambreen Wayne Self - patient is the insured [employer] [facility] [address] [place] [address] [id number] Ambreen Wayne Self - patient is the insured Medical (General) History Medical History History ICD Code Anxiety Gall bladder removal Heart disease osteonecrosis Lyme disease Measles Mumps Chicken pox thyroid Surgical History Surgery Date(Month/Year) gall bladder removal 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 04/16/2022
--- OUTSIDE RECORDS SUMMARY | 2025-07-27 08:20 | XMS_ITS | Patient Health Record ---
Author Organization [facility] Address [address] [place] [address] Care Team Providers Care Value Stream Leader Name Role Phone Natanael Dumont MD Primary Care Provider Juanjo Kimbrough Jr Unavailable [phone] Allergies Allergen (clinical drug ingredient) Drug/Non Drug Allergy documented on EMR Reaction Allergy Type Onset Date Status Substance with sulfonamide structure and antibacterial mechanism of action (substance) Sulfa (uncoded) Unknown Allergy Active Shellfish (FN) Shellfish-derived Products Unknown Drug Allergy Active Reason For Referral No Information Medications Medication SIG (Take, Route, Frequency, Duration) Notes Start Date End Date Status LORazepam 1 MG Tablet 1 tablet as needed Orally Once a day Active Esomeprazole Sodium 20 MG Solution Reconstituted 1 tablet orally once a day Active dexAMETHasone .5mg rinse in mouth Active HYDROcodone-Acetaminophe n 5-325 MG Tablet 1 tablet as needed Orally every 6 hrs/ as needed Not-Taking/PRN Nitroglycerin 0.4 MG Tablet Sublingual Sublingual; Duration: 12 Active Atenolol 25 MG Tablet 1 tablet Orally On ce a day Active Levothyroxine Sodium 137 MCG Tablet 1 capsule Orally Once a day Active Clopidogrel Bisulfate 75 MG Tablet Oral; Duration: 90 Active Calcium Active Telmisartan 40 MG Tablet TAKE 1 TABLET B Y MOUTH DAILY. Oral; Duration: 90 Active Famotidine 20 MG Tablet Oral; Duration: 90 Active Furosemide 20 MG Tablet Oral; Duration: 90 Active Allopurinol 100 MG Tablet Oral; Duration: 90 Active MiraLax (colon prep) 17 GM/SCOOP Powder mixed with Gatorade or Crystal Light Orally begin at 5:00 p.m. the day before the procedure; Duration: 1 day 02/18/2024 Active Vitamin K2 Active Vitamin D 1000 UNIT Tablet 1 tablet Orally Once a day; Duration: 30 day(s) Active Immunizations Vaccine Route Administration Date Status Comme nts Influenza Unknown 05/08/2018 Administered Social History Social History Additional Details Category Social Info Options Details Miscellaneous: Marital status: Occupation: retired Problems Problem Type SNOMED Code ICD Code Onset Dates Problem Status W/U Status Risk Notes Problem Colon cancer screening (110736703) Colon cancer screening (Z12.11) Active confirmed Problem Gastro-esophageal reflux disease without esophagitis (263055380) Gastro-esophageal reflux disease without esophagitis (K21.9) Active confirmed Problem Gastroesophageal reflux disease without esophagitis (044724330) Gastroesophageal reflux disease without esophagitis (K21.9) Active confirmed Problem Dysphagia (82411321) Dysphagia, unspecified type (R13.10) Active confirmed Problem Diarrhea (62982085) Diarrhea, unspecified type (R19.7) Active confirmed Problem Diffuse spasm of esophagus (01069648) Esophageal dysmotilities (K22.4) Active confirmed Problem Altered bowel function (25564169) Change in bowel movement (R19.8) Active confirmed Plan Of Treatment Pending Test [...] Start Date Coverage End Date MEDICARE OF [place] [address] [place] [address] [id number] RO SHAH Self - patient is the insured [employer] ATT[employer] CLAIMS [address] [place] [address] [id number] RO SHAH Self - patient is the [...]
--- OUTSIDE RECORDS SUMMARY | 2025-07-27 08:20 | XMS_ITS | Encounter Summary ---
Author Organization [facility] [place] [facility] Address [address] [place] [address] Phone Care Team Providers Care Stopper Grinder Name Role Phone Natanael Dumont MD Primary Care Provider Natanael Dumont MD Unavailable Kodi Hong MD Unavailable Natanael Dumont MD Unavailable Ilya Patel MD Unavailable Jess León NP Unavailable Unavailabl e Omar Smith MD Unavailable [phone] Deysi Johnson Unavailable [phone] Encounter Details Date Type Department Care Team (Late st Contact Info) Description 06/13/2024 Prep for Surgery [facility] Orthopedics & Sports Medicine [address] [place] [address] Daniela Gardner MD [address] [place] [address] Orthopedics & Sports Medicine, [facility] [place] [address] Social History Tobacco Use Types [...] Description 12/15/2025 11:30 AM EDT Office Visit [facility] Internal Medicine [address] [place] [address] Natanael Dumont MD [address] [place], [place] [phone] [email or web address] documented as of this encounter Visit Diagnoses Not on filedocumented in this encounter Additional Health Concerns Assessment Noted Time PHQ-2 Depression Total Score: 2 03/28/20 24 1:07 PM EDT documented as of this encounter Care Teams Stopper Grinder Relationship Specialty Start Date End Date Natanael Dumont MD [address] [place] [address] PCP - General Internal Medicine 07/03/22 Natanael Dumont MD [address] [place] [address] [email or web address] Internal Medicine 07/03/22 Kodi Hong MD [address] [place] [address] Internal Medicine 11/10/19 Natanael Dumont MD [address] [place] [address] Insurance Assigned Provider 12/12/23 Ilya Patel MD [address] [place] [address] Orthopedics & Sports Medicine, [place] [address] Orthopedic Surgery 05/28/20 Jess León NP [address] [place] [address] Family Medicine 05/29/20 Omar Smith MD [address] [place] [address] Urology 10/13/22 Deysi Johnson MBBS [address] [place] [address] Medical Oncology 04/13/24 documented as of this encounter Additional Source Comments The information contained in this document represents components of the legal health record. It is not the complete legal health record.[facility] [place] [facility]
--- OUTSIDE RECORDS SUMMARY | 2025-07-27 08:21 | XMS_ITS | Encounter Summary ---
Author Organization [facility] Address [address] [place] [address] Phone Care Team Providers Care Academic Services Professional Name Role Phone Natanael Dumont MD Primary Care Provider [phone] Natanael Dumont MD Primary Care Provider [phone] Natanael Dumont MD Unavailable Mikael Omalley DO Unavailable Kodi Hong MD Unavailable Natanael Dumont MD Unavailable Ilya Patel MD Unavailable Jess León NP Unavailable Unavailabl e Omar Smith MD Unavailable [phone] Deysi Johnson Unavailable [phone] Encounter Details Date Type Department Care Team (Late st Contact Info) Description 05/28/2022 Procedure Pass OR Admitting Dept - Virtual Department [address] [place], [place] [phone] Social History Tobacco Use Types Packs/Day Years [...] Description 12/15/2025 11:30 AM EDT Office Visit [facility] Internal Medicine [address] [place] [address] Natanael Dumont MD [address] [place] [address] [email or web address] documented as of this encounter Visit Diagnoses Not on filedocumented in this encounter Additional Health Concerns Assessment Noted Time PHQ-2 Depression Total Score: 2 02/26/20 22 11:54 AM EDT documented as of this encounter Care Teams Academic Services Professional Relationship Specialty Start Date End Date Natanael Dumont MD [address] [place] [address] [email or web address] PCP - General Internal Medicine 04/07/19 07/02/22 Natanael Dumont MD [address] [place] [address] PCP - General Internal Medicine 07/03/22 Mikael Omalley DO [address] [place] [address] [email or web address] PCP - Hematology/Oncology Hematology and Oncology 06/06/20 04/12/24 Natanael Dumont MD [address] [place] [address] Internal Medicine 07/03/22 Kodi Hong MD [address] [place] [address] Internal Medicine 11/10/19 Natanael Dumont MD [address] [place] [address] [email or web address] Insurance Assigned Provider 12/12/23 Ilya Patel MD [address] [place] [address] Orthopedics & Sports Medicine, [place] [address] Orthopedic Surgery 05/28/20 Jess León NP [address] [place] [address] Family Medicine 05/29/20 Omar Smith MD [address] [place] [address] Urology 10/13/22 Deysi Johnson MBBS [address] [place] [address] Medical Oncology 04/13/24 documented as of this encounter Additional Source Comments The information contained in this document represents components of the legal health record. It is not the complete legal health record.[facility]
--- OUTSIDE RECORDS SUMMARY | 2025-07-27 08:21 | XMS_ITS | Clinical Summary ---
Author Organization [facility] Address [address] [place] [address] Phone Care Team Providers Care Manager Intermediate Name Role Phone Natanael Dumont MD Primary Care Provider Natanael Dumont MD Unavailable Kodi Hong MD Unavailable Natanael Dumont MD Unavailable Ilya Patel MD Unavailable Jess León NP Unavailable Unavailabl e Omar Smith MD Unavailable [phone] Deysi Johnson Unavailable Allergies Active Allergy Reactions Criticality Noted Date Comments Benzalkonium Chloride Anaphylaxis High 05/14/2022 Celecoxib Swelling 09/26/2021 Nsaids (Non-Steroidal Anti-Inflammatory Drug) 03/01/2020 Insulator Technician said no nsaids iga def Other Diarrhea,Nausea And Vomiting,Anaphylaxis High 10/02/2014 - [facility]ed[facility] Shellfish Containing Products Anaphylaxis,Diarrhea High 03/01/2020 Sulfa (Sulfonamide Antibiotics) Swelling,Rash,Other (See Comments) Low 04/25/2008 Cold sores on lips Sulfamethoxazole-Trime thoprim 05/14/2022 Other reaction(s): swelling Valsartan Cough 10/01/2020 Medications Medication-Free Text D3 and K2 Vitamin D 62.5mcg (2500iu) Vitamin K (K2) 90 mcg Active calcium crb,cit/D3/min34 /kassidy (CITRACAL PLUS BONE DENSITY ORAL) Take 1 tablet by mouth 2 (two) times a day. Active furosemide (LASIX) 20 MG tablet Take 20 mg by mouth 2 (two) times a day. 05/15/20 23 Active dexAMETHasone 0.5 mg/5 mL solutionIndicati ons:Lichen planus Take 5 mL (0.5 mg total) by mouth daily as needed. (Mouth rinse) From dentist for lichen planus 150 mL 2 11/16/19 24 Active aspirin 81 mg chewable tablet Take 81 mg by mouth daily. Active acetaminophen (TYLENOL) 325 mg tablet Take 2 tablets (650 mg total) by mouth every evening. 100 tablet 1 06/28/20 24 Active Additional Information Patient taking differently:650 mg OralWeekly, Up to twice weekly, Reported on 07/14/2025 esomeprazole (NEXIUM) 20 MG capsuleIndicatio ns:Gastroesophag eal reflux disease without esophagitis TAKE 1 CAPSULE BY MOUTH BEFORE BREAKFAST. 90 capsule 3 12/27/19 25 Active nitroglycerin (NITROSTAT) 0.[address] 0.4 mg under the tongue every 5 (five) minutes as needed for chest pain. 09/29/19 24 Active isosorbide mononitrate (IMDUR) 30 MG 24 hr tablet Take 30 mg by mouth daily. Active telmisartan (MICARDIS) 20 MG tabletIndication s:Primary hypertension TAKE 1 TABLET BY MOUTH DAILY. 90 tablet 3 03/27/20 25 Active atenolol (TENORMIN) 25 MG tabletIndication s:Essential hypertension Take 1 tablet (25 mg total) by mouth daily. 90 tablet 3 06/14/20 25 Active levothyroxine (SYNTHROID, LEVOTHROID) 100 MCG tabletIndication s:Hypothyroid Take 1 tablet (100 mcg total) by mouth every morning. 90 tablet 3 06/14/20 25 Active famotidine (PEPCID) 20 MG tabletIndication s:Gastroesophage al reflux disease, unspecified whether esophagitis present TAKE 1 TABLET EVERY EVENING NEEDED 90 tablet 3 06/22/20 25 Active LORazepam (ATIVAN) 1 MG tabletIndication s:Anxiety Take 1 tablet (1 mg total) by mouth 2 (two) times a day as needed for anxiety. 180 tablet 1 07/14/20 25 Active allopurinol (ZYLOPRIM) 100 MG tabletIndication s:Tophaceous gout Take 1 tablet (100 mg total) by mouth 2 (two) times a day. 180 tablet 3 07/17/20 25 Active LORazepam (ATIVAN) 1 MG tabletIndication s:Anxiety Take 1 tablet (1 mg total) by mouth 2 (two) times a day as needed. 180 tablet 1 05/23/20 24 025 Discontin ued(Reord er) allopurinol (ZYLOPRIM) 100 MG tabletIndication s:Tophaceous gout TAKE 1 TABLET TWICE A DAY 180 tablet 3 08/05/20 24 025 Discontin ued(Reord er) betamethasone dipropionate 0.05 % cream Apply 1 Application topically. Every 2-3 days on body 025 Discontin ued(No longer taking) triamcinolone acetonide 0.1 % ointmentIndicati ons:Rash of face APPLY TOPICALLY TWICE A DAY FOR 7 DAYS 15 g 44 02/09/20 25 025 Discontin ued(No longer taking) levothyroxine (SYNTHROID, LEVOTHROID) 137 MCG tabletIndication s:Hypothyroid 1tablet m-f and 1/2 tablet on Saturdays and no tablets on Sundays each week. 80 tablet 3 03/09/20 25 025 Discontin ued(No longer taking) Active Problems Problem Noted Date Diagnosed Date [...] were answered to her satisfaction. Atherosclerosis of [place] co ronary artery of [place] heart without angina pectoris 03/28/2024 Hallux rigidus [...] Encounters Date Type Department Care Team Description 07/17/2025 Refill [facility] Internal Medicine [address] [address] Natanael Dumont MD Medication Refill 07/14/2025 11:00 AM EST Office Visit [facility] Internal Medicine [address] [address] Natanael Dumont MD Routine general medical examination at a health care facility (Primary Dx); Need for prophylactic vaccination and inoculation against influenza; Osteopenia, unspecified location; Postmenopausal estrogen deficiency; MGUS (monoclonal gammopathy of unknown significance); Atherosclerosis of [place] coronary artery of [place] heart without angina pectoris; Acquired hypothyroidism; Benign essential hypertension; Impaired fasting blood sugar; Anxiety 06/30/2025 9:27 AM EDT - 06/30/2025 11:59 PM EDT Hospital Encounter [facility] [address] [place] [address] Natanael Dumont MD Discharge Disposition: Home or Self Care 06/22/2025 Refill [facility] Internal Medicine [address] [facility] [place] [address] Natanael Dumont MD Medication Refill 06/14/2025 Telephone [facility] Internal Medicine [address] [place] [address] Natanael Dumont MD request for lab orders 06/13/2025 Refill [facility] Internal Medicine [address] [place] [address] Natanael Dumont MD Medication Refill 05/17/2025 11:55 AM EDT - 05/17/2025 11:59 PM EDT Hospital Encounter [facility]leb [address] [place] [address] Natanael Dumont MD Discharge Disposition: Home or Self Care from Last 3 Months Immunizations Immunization Administration Dates Next Due COVID-19 (Pre-06/29) Moderna Vaccine, Bivalent 6mo+ 06/11/2022 COVID-19 (Pre-06/29) Pfizer Vaccine, mRNA, PF 10/31/2020,10/10/2020 COVID-19 Moderna Spikevax Vaccine 12+ 06/12/2023 INFLUENZA, SPLIT VIRUS, TRIV ALENT W/ PRESERVATIVE IM 06/15/2012 Influenza High-Dose Quadriva lent Preservative Free IM 06/08/2023,06/03/2022,06/23/2021,04/26 Influenza High-Dose Trivalen t Preservative Free IM 07/14/2025,05/23/2024,06/27/2019,05/25,06/06/2016,05/29/2014 Influenza, Unspecified Formulation 06/19/2022,,06/27/2010 Pneumococcal conjugate PCV13 [...] as food, clothing, or medical care? No 07/14/2025 In the past 12 months have y ou been in a relationship with a person who hurts, threatens, or tries to control you? No 07/14/2025 Are you denied basic needs s uch as food, clothing, or medical care? No 07/14/2025 In the past 12 months have y ou been in a relationship with a person who hurts, threatens, or tries to control you? No 07/14/2025 Comments No Sex and Gender Information Value Date Recorded Sex Assigned at Female 06/22/2020 5:49 PM EDT Legal Sex Female 1:52 PM EST Gender Identity Female 06/22/2020 5:49 PM EDT Sexual Orientation Straight 06/22/2020 5: 49 PM EDT Last Filed Vital Signs Vital Sign Reading Time Taken Comments Blood Pressure 104/55 07/14/2025 10:59 AM EST Pulse 72 07/14/2025 10:59 AM EST Temperature 36.4 C (97.6 F) 07/14/2025 10:59 AM EST Respiratory Rate 16 07/14/2025 10:59 AM EST Oxygen Saturation 96% 07/14/2025 10:59 AM EST Inhaled Oxygen Concentration - - Weight 78.7 kg (173 lb 9.6 oz) 07/14/2025 10:59 AM EST Height 156.6 cm (5' 1.65 ) 07/14/2025 10:[address] Body Mass Index 32.11 07/14/2025 10:59 AM EST Plan of Treatment Upcoming Encounters Date Type Department Care Team (Late st Contact Info) Description 12/15/2025 11:30 AM EDT Office Visit [facility] Internal Medicine [address] [place] [address] Natanael Dumont MD [address] [place] [address] [email or web address] Health Maintenance Due Date Last Done Comments COVID-19 VACCINE ( season) 2025 06/12/2023, 01/13/2023, 06/11/2022, Additional history exists BLOOD PRESSURE 01/11/2026 07/14/2025 TSH LEVEL 05/17/2026 05/17/2025, 02/07, 12/27/2024, Additional history exists CREATININE LEVEL 06/30/2026 06/30/2025, , 12/27/2024, Additional history exists LIPID PANEL 06/30/2026 06/30/2025, 12/07, 03/22/2024, Additional history exists POTASSIUM LEVEL 06/30/2026 06/30/2025, 02/07, 12/27/2024, Additional history exists DEPRESSION SCREENING 07/14/2026 07/14/2025, 07/14/20 FOLLOW UP BONE DENSITY TESTING 07/14/2027 07/14/2025, 10/08/2022, 09/25/2022, Additional history exists Adult Td,Tdap Booster 01/01/2031 01/01/2021 , 09/29/2013, 09/07/2003 ZOSTER VACCINES Completed 05/27/2019, 03/08, 09/07/2007 PNEUMOCOCCAL VACCINES (50+ years) Completed 02/25/2022, 07/19/2015, 10/08/2008 RSV VACCINE Completed 05/30/2024 INFLUENZA VACCINE Completed 07/14/2025, , 06/08/2023, Additional history exists OSTEOPOROSIS SCREENING INITIAL (ONE-TIME) Completed 07/14/2025, 10/08/2022, 09/25/2022, Additional history exists HEPATITIS A VACCINES Aged Out No long [...] this topic Medical Devices Implanted Type Area Rehab Physician Device Identifier Shelf Expiration Date Model / Serial / Lot Lens Lens Bilatera l: Eye Prosthetic Joint Prosthetic Joint Left: Knee Peg 31x8mm Button Patella Knee Vanguard Uhmwpe 3 Series A Standard - [id number] Implanted:Qty : 1 on 06/22/2020 by Ilya Patel MD at [facility] STANDARD Right: Knee [employer] 03/27/2025 [id number] / / [id number] Knee Tray 67mm Plate Bone Primary Vanguard Titanium Revision Interlock Cemented - [id number] Implanted:Qty : 1 on 06/22/2020 by Ilya Patel MD at [facility] Right: Knee [employer] 03/06/2030 [id number] / / [id number] Cement Bone Biomet Standard R 1x40 Us - [id number] Implanted:Qty : 1 on 06/22/2020 by Ilya Patel MD at [facility] Right: Knee SHABBIR / DIV OF Array Bridge 01/04/2022 [id number] / / [id number] Beam I L 40mm Od 10 Literature Teacher Stem Knee Prmary Stablzed Fnned Mpl Ascent Maxm - [id number] Implanted:Qty : 1 on 06/22/2020 by Ilya Patel MD at [facility] Right: Knee [employer] 11/30/2029 [id number] / / [id number] Box Component 62.5mm Femoral Vanguard Titanium Posterior Stabilizied Right - [id number] Implanted:Qty : 1 on 06/22/2020 by Ilya Patel MD at [facility] Right: Knee [employer] 11/30/2029 [id number] / / [id number] Knee Insert [id number]/[id number] Implant Bring Vanguard 05 - [id number] Implanted:Qty : 1 on 06/22/2020 by Ilya Patel MD at [facility] Right: Knee [employer] 10/11/2024 [id number] / / [id number] Stent Ureteral 7frx22 To 30cm Double Pigtail Suture Stretch Vl Positioner - [id number] Implanted:Qty : 1 on 07/16/2022 by Omar Smith MD at [facility] Left: Ureter Dialectica [facility] [id number] 03/02/2025 [id number] / / [id number] Procedures Procedure Name Priority Date/Time Associated Diagnosis Comments BD DXA MONITORING Routine 07/14/2025 11: 37 AM EST Osteopenia, unspecified location CBC AND DIFFERENTIAL Routine 06/30/2025 9:24 AM EDT Benign essential hypertension COMPREHENSIVE METABOLIC PANEL (CMP) Routine 06/30/2025 9:24 AM EDT Benign essential hypertension LIPID PANEL Routine 06/30/2025 9:24 AM EDT Benign essential hypertension HEMOGLOBIN A1C Routine 06/30/2025 9:24 AM EDT Impaired fasting blood sugar TSH WITH REFLEX Routine 05/17/2025 11:51 AM EDT Acquired hypothyroidism from Last 3 Months Results * (ABNORMAL) Comprehensive metabolic panel (06/30/2025 9:24 AM EDT) SODIUM 137 133 - 146 mmol/L [facility] POTASSIUM 3.9 3.3 - 5.1 mmol/L [facility] CHLORIDE 101 96 - 108 mmol/L [facility] CO2 23 21 - 35 mmol/L [facility] BUN 22(H) 6 - 19 mg/dL [facility] CREATININE 0.70 0.5 - 1.5 mg/dL [facility] GLUCOSE 114(H) 70 - 99 mg/dL [facility] ALBUMIN 4.4 3.9 - 4.8 g/dL [facility] TOTAL PROTEIN 7.5 6.5 - 8.0 g/dL [facility] CALCIUM 9.7 8.4 - 10.3 mg/dL [facility] ALKALINE PHOSPHATASE 71 39 - 117 U/L [facility] TOTAL BILIRUBIN 0.4 0.0 - 1.2 mg/dL [facility] AST 36 0 - 37 U/L [facility] ALT 29 0 - 40 U/L [facility] GLOBULIN 3.1 1 - 4.8 g/dL [facility] EGFR 86 >59 mL/min/1.7 3m2 [facility] Comment:Estimated glomerular filtration rate calculated using the CKD-EPI refit equation. ANION GAP 17 10 - 20 mmol/L [facility] Blood 06/30/2025 9:24 AM EDT 06/30/2025 9:27 AM EDT us Natanael Dumont MD LAB BLOOD BKR ORDERABLES Traci regalado Result [address] [address] * (ABNORMAL) CBC and differential (06/30/2025 9:24 AM EDT) WBC 10.43 4.00 - 11.00 K/uL [facility] RBC 4.28 4.00 - 5.20 M/uL [facility] HGB 12.8 12.0 - 16.0 g/dL [facility] HCT 39.7 36.0 - 46.0 % [facility] PLT 278 150 - 450 K/uL [facility] MCV 92.8 80.0 - 100.0 fL [facility] MCH 29.9 27.0 - 31.0 pg [facility] MCHC 32.2 32.0 - 36.0 g/dL [facility] RDW 16.4(H) 11.5 - 14.5 % [facility] MPV 9.2 8.4 - 12.0 fL [facility] NRBC 0.00 0.00 /100 WBCs [facility] ABSOLUTE NRBC 0.00 0.00 K/uL [facility] DIFF METHOD Auto [facility] NEUTS 62.3 48.0 - 76.0 % [facility] LYMPHS 19.7 18.0 - 41.0 % [facility] MONOS 10.5 4.0 - 11.0 % [facility] EOS 6.2(H) 0.0 - 5.0 % [facility] BASOS 0.9 0.0 - 1.5 % [facility] Granulocytes, immature (%) 0.4 0.0 - 0.9 % [facility] ABSOLUTE NEUTS 6.51 1.92 - 7.60 K/uL [facility] ABSOLUTE LYMPHS 2.05 0.72 - 4.10 K/uL [facility] ABSOLUTE MONOS 1.09 0.16 - 1.10 K/uL [facility] ABSOLUTE EOS 0.65(H) 0.00 - 0.50 K/uL [facility] ABSOLUTE BASOS 0.09 0.00 - 0.15 K/uL [facility] Granulocytes, immature 0.04 0.00 - 0.09 K/uL [facility] Blood 06/30/2025 9:24 AM EDT 06/30/2025 9:27 AM EDT us Natanael Dumont MD LAB BLOOD BKR ORDERABLES Traci l Result Performing Organization Address City/[facility]/ZIP Co de Phone Number [address] [address] * (ABNORMAL) Hemoglobin A1c (06/30/2025 9:24 AM EDT) HEMOGLOBIN A1C 6.0(H) 4.3 - 5.8 % [facility] Blood 06/30/2025 9:24 AM EDT 06/30/2025 9:27 AM EDT Natanael Dumont MD LAB BLOOD BKR ORDERABLES Traci l Result Performing Organization Address [facility] Co de Phone Number [address] [address] * (ABNORMAL) Lipid panel (06/30/2025 9:24 AM EDT) HDL 68 mg/dL [facility] Comment: Interpretation <40 mg/dL: Low HDL cholesterol (major risk factor for CHD) Greater than or equal to 60 mg/dL: High HDL cholesterol ( negative risk factor for CHD) HDL - cholesterol is affected by a number of factors, e.g. smoking, excerise, hormones, sex and age. CHOLESTEROL 189 0 - 240 mg/dL [facility] TRIGLYCERIDES 87 30 - 160 mg/dL [facility] LDL 104 50 - 129 mg/dL [facility] Comment: LDL levels in terms of risk for coronary heart disease: <100 mg/dL: Optimal 100-129 mg/dL: Near or above optimal 130-159 mg/dL: Borderline high 160-189 mg/dL: High >190 mg/dL: Very High CARDIAC RISK RATIO 2.8(L) 3.3 - 4.4 C [facility] Blood 06/30/2025 9:24 AM EDT 06/30/2025 9:28 AM EDT Natanael Dumont MD LAB BLOOD BKR ORDERABLES Traci l Result [address] [address] * TSH with reflex (05/17/2025 11:51 AM EDT) TSH 1.24 0.27 - 4.20 uIU/mL [facility] Blood 05/17/2025 11:5 1 AM EDT 05/17/2025 11:54 AM EDT Natanael Dumont MD LAB BLOOD BKR ORDERABLES Traci l Result Performing Organization Address City/[facility]/ZIP Co de Phone Number [address] [address] * HM DEXA SCAN (10/08/2022) Natanael Dumont MD HEALTH MAINTENANCE Edited Res ult - Final from Last 3 Months or Most Recently Relevant to Health Maintenance Insurance COOL [employer] MEDEX SUPPLEMENT MEDICARE PART A & B MEDEX SUPPLEMENT MEDICARE PART A & B [employer] MEDEX SUPPLEMENT MEDICARE PART A & B [employer] MEDEX SUPPLEMENT MEDICARE PART A & B [employer] MEDEX SUPPLEMENT MEDICARE PART A & B [employer] MEDEX SUPPLEMENT MEDICARE PART A & B [employer] MEDEX SUPPLEMENT MEDICARE PART A & B [employer] MEDEX SUPPLEMENT MEDICARE PART A & B MEDEX SUPPLEMENT MEDICARE PART A & B MEDICARE PART A & B [employer] MEDEX SUPPLEMENT MEDICARE PART A & B [employer] MEDEX SUPPLEMENT MEDICARE PART A & B [employer] MEDEX SUPPLEMENT MEDICARE PART A & B [employer] MEDEX SUPPLEMENT MEDICARE PART A & B [facility] MEDEX SUPPLEMENT MEDICARE PART A & B [employer] MEDEX SUPPLEMENT MEDICARE PART A & B [employer] MEDEX SUPPLEMENT MEDICARE PART A & B Member Subscriber Plan / Payer (Ef fective 2007-Present) Name:Ambreen Wayne Member ID:[id number] Relation to Subscriber:Self Name:Ambreen Wayne Subscriber ID:[id number] Payer ID:[id number] Group ID:Not on file Type:Medicare Address: [facility] R2 [employer] [facility] [address] [place] [address] [employer] MEDEX SUPPLEMENT MEDICARE PART A & B [employer] MEDEX SUPPLEMENT Advance Directives For more information, please contact: [phone] (9AM - 5PM [facility], Thursday-Thursday) Documents on File Type Date Recorded Patient Hand Etcher Expl anation Healthcare Proxy 06/26/2020 10:08 AM MOLST 12/25/2020 MOLST 12/25/20 * Full Code (Latest Code Status on File) Date Activated Date Inactivated Comments 06/22/2020 11:14 AM Question Answer Comments Code Status Confirmed With: Patient Care Teams Manager Intermediate Relationship Specialty Start Date End Date Natanael Dumont MD [address] [place] [phone] [email or web address] PCP - General Internal Medicine 07/03/22 Natanael Dumont MD [address] [place] [address] [email or web address] Internal Medicine 07/03/22 Kodi Hong MD [address] [place] [address] Internal Medicine 11/10/19 Natanael Dumont MD [address] [place] [address] [email or web address] Insurance Assigned Provider 12/12/23 Ilya Patel MD [address] [place] [address] Orthopedics & Sports Medicine, [facility] [place] [address] [email or web address] Orthopedic Surgery 05/28/20 Jess León, YULIYA [address] [place] [phone] Family Medicine 05/29/20 Omar Smith MD [address] [place] [phone] [email or web address] Urology 10/13/22 Deysi Johnson MBBS [address] [place] [phone] Medical Oncology 04/13/24 Additional Source Comments The information contained in this document represents components of the legal health record. It is not the complete legal health record.[facility]
--- OUTSIDE RECORDS SUMMARY | 2025-07-27 08:21 | XMS_ITS | Encounter Summary ---
Author Organization [facility] Address [address] [place] [address] Phone Care Team Providers Care Geodetic Surveyor Technologist Name Role Phone Natanael Dumont MD Primary Care Provider Natanael Dumont MD Unavailable [phone] Kodi Hong MD Unavailable [phone] Natanael Dumont MD Unavailable Ilya Patel MD Unavailable Jess León NP Unavailable Unavailabl e Omar Smith MD Unavailable [phone] Deysi Johnson Unavailable [phone] Reason for Visit * Reason Onset Date Comments request for lab orders 06/14/2025 Encounter Details Date Type Department Care Team (Late st Contact Info) Description 06/14/2025 Telephone [facility] [place] Internal Medicine [address] [place], [place] [phone] Natanael Dumont MD [address] [place], [place] [phone] [email or web address] request for lab orders Social History Tobacco [...] Description 12/15/2025 11:30 AM EDT Office Visit [facility] Internal Medicine [address] [place] [address] Natanael Dumont MD [address] [place] [address] [email or web address] documented as of this encounter Results * (ABNORMAL) Hemoglobin A1c (06/30/2025 9:24 AM EDT) HEMOGLOBIN A1C 6.0(H) 4.3 - 5.8 % [facility] Blood 06/30/2025 9:24 AM EDT 06/30/2025 9:27 AM EDT us Natanael Dumont MD LAB BLOOD BKR ORDERABLES Traci l Result [address] [address] * (ABNORMAL) Lipid panel (06/30/2025 9:24 AM [...] RISK RATIO 2.8(L) 3.3 - 4.4 C [facility] Blood 06/30/2025 9:24 AM EDT 06/30/2025 9:28 AM EDT us Natanael Dumont MD LAB BLOOD BKR ORDERABLES Traci regalado Result [facility] [address] [place] [address] * (ABNORMAL) Comprehensive metabolic panel (06/30/2025 9:24 [...] ANION GAP 17 10 - 20 mmol/L [facility] Blood 06/30/2025 9:24 AM EDT 06/30/2025 9:27 AM EDT us Natanael Dumont MD LAB BLOOD BKR ORDERABLES Traci fabricio Result [facility] [address] [place] [address] * (ABNORMAL) CBC and differential (06/30/2025 9:24 [...] LAB BLOOD BKR ORDERABLES Traci regalado Result [facility] [address] [place] [address] documented in this encounter Visit Diagnoses Diagnosis Benign essential hypertension- Primary Essential hypertension, benign Impaired fasting blood sugar Impaired fasting glucose documented in this encounter Additional Health Concerns Assessment Noted Time PHQ-2 Depression Total Score: 2 03/28/20 24 1:07 PM EDT documented as of this encounter Care Teams Geodetic Surveyor Technologist Relationship Specialty Start Date End Date Natanael Dumont MD [address] [place] [phone] [email or web address] PCP - General Internal Medicine 07/03/22 Natanael Dumont MD [address] [place] [phone] [email or web address] Internal Medicine 07/03/22 Kodi Hong MD [address] [place] [phone] Internal Medicine 11/10/19 Natanael Dumont MD [address] [place] [phone] [email or web address] Insurance Assigned Provider 12/12/23 Ilya Patel MD [address] [place] [address] Orthopedics & Sports Medicine, [facility] [place] [address] [email or web address] Orthopedic Surgery 05/28/20 Jess León NP [address] [place] [phone] Family Medicine 05/29/20 Omar Smith MD [address] [place] [phone] [email or web address] Urology 10/13/22 Deysi Johnson MBBS [address] [place] [phone] [email or web address] Medical Oncology 04/13/24 documented as of this encounter Additional Source Comments The information contained in this document represents components of the legal health record. It is not the complete legal health record.[facility]
--- OUTSIDE RECORDS SUMMARY | 2025-07-27 08:21 | XMS_ITS | Encounter Summary ---
Author Organization [facility] Address [address] [place] [address] Phone Care Team Providers Care Administrative Intern Name Role Phone Natanael Dumont MD Primary Care Provider Natanael Dumont MD Primary Care Provider Natanael Dumont MD Unavailable [phone] Mikael Omalley DO Unavailable Kodi Hong MD Unavailable Natanael Dumont MD Unavailable Ilya Patel MD Unavailable [phone] Jess León NP Unavailable Unavailabl e Omar Smith MD Unavailable [phone] Deysi Johnson Unavailable Encounter Details Date Type Department Care Team (Late st Contact Info) Description 05/08/2022 Prep [facility] & Sports Medicine [address] [place] [address] Daniela Gardner MD [address] [place] [address] Orthopedics & Sports Medicine, [facility] [place] [address] Social History Tobacco Use Types [...] Description 12/15/2025 11:30 AM EDT Office Visit [facility] Internal Medicine [address] [place] [address] Natanael Dumont MD [address] [place] [address] [email or web address] documented as of this encounter Visit Diagnoses Not on filedocumented in this encounter Additional Health Concerns Assessment Noted Time PHQ-2 Depression Total Score: 2 02/26/20 22 11:54 AM EDT documented as of this encounter Care Teams Administrative Intern Relationship Specialty Start Date End Date Natanael Dumont MD [address] [place] [address] [email or web address] PCP - General Internal Medicine 04/07/19 07/02/22 Natanael Dumont MD [address] [place] [address] PCP - General Internal Medicine 07/03/22 Mikael Omalley DO [address] [place] [phone] [email or web address] PCP - Hematology/Oncology Hematology and Oncology 06/06/20 04/12/24 Natanael Dumont MD [address] [place] [address] Internal Medicine 07/03/22 Kodi Hong MD [address] [place] [address] Internal Medicine 11/10/19 Natanael Dumont MD [address] [place] [address] [email or web address] Insurance Assigned Provider 12/12/23 Ilya Patel MD [address] [place] [address] Orthopedics & Sports Medicine, [facility] [place] [address] Orthopedic Surgery 05/28/20 Jess León NP [address] [place] [address] Family Medicine 05/29/20 Omar Smith MD [address] [place] [address] Urology 10/13/22 Deysi Johnson MBBS [address] [place] [phone] Medical Oncology 04/13/24 documented as of this encounter Additional Source Comments The information contained in this document represents components of the legal health record. It is not the complete legal health record.[facility]
--- OUTSIDE RECORDS SUMMARY | 2025-07-27 08:21 | XMS_ITS | Encounter Summary ---
Author Organization [facility] Address [address] [place] [address] Phone Care Team Providers Care Admission Specialist Name Role Phone Natanael Dumont MD Primary Care Provider Natanael Dumont MD Unavailable [phone] Kodi Hong MD Unavailable [phone] Natanael Dumont MD Unavailable [phone] Ilya Patel MD Unavailable [phone] Jess León NP Unavailable Unavailabl e Omar Smith MD Unavailable [phone] Deysi Johnson Unavailable Reason for Visit * Reason Onset Date Comments Insect Bite 05/20/2024 Tick bite bellyb utton-RED Encounter Details Date Type Department Care Team (Late st Contact Info) Description 05/20/2024 Nurse Triage [facility] [address] [place], [place] [phone] Natanael Dumont MD [address] [place], [place] [phone] Insect Bite (Tick bite bellybutton-RED) Social History [...] EDT Patient hayden to Urgent care on [facility], [facility], records requested, Patent states tick was [...] She stated she would go to in [place] Call Disposition Schedule Same Day Visit/Appt Disposition [...] (after using Care Advice) Protocols used: Tick Oiqx-[id number]-HI * Letha Jaimes - 05/20/2024 10:53 AM EDT pt called stating thinks has tick in [facility] states its severely red.Please contact and advise. Central Support Product Support Representative (Please do not reply to this user; this inbox is not monitored.) Thank you. documented in this encounter Plan of Treatment Upcoming Encounters Date Type Department Care Team (Late st Contact Info) Description 12/15/2025 11:30 AM EDT Office Visit [facility] Internal Medicine [address] [place] [address] Natanael Dumont MD [address] [place] [address] documented as of this encounter Visit Diagnoses Not on filedocumented in this encounter Additional Health Concerns Assessment Noted Time PHQ-2 Depression Total Score: 2 03/28/20 24 1:07 PM EDT documented as of this encounter Care Teams Admission Specialist Relationship Specialty Start Date End Date Natanael Dumont MD [address] [place] [address] PCP - General Internal Medicine 07/03/22 Natanael Dumont MD [address] [place] [address] Internal Medicine 07/03/22 Kodi Hong MD [address] [place] [address] Internal Medicine 11/10/19 Natanael Dumont MD [address] [place] [phone] Insurance Assigned Provider 12/12/23 Ilya Patel MD [address] [place] [address] Orthopedics & Sports Medicine, [facility] [place] [address] Orthopedic Surgery 05/28/20 Jess León NANNY/HOUSEHOLD MANAGER [address] [place] [address] Family Medicine 05/29/20 Omar Smith MD [address] [place] [address] Urology 10/13/22 Deysi Johnson MBBS [address] [place] [address] Medical Oncology 04/13/24 documented as of this encounter Additional Source Comments The information contained in this document represents components of the legal health record. It is not the complete legal health record.[facility]
--- OUTSIDE RECORDS SUMMARY | 2025-07-27 08:21 | XMS_ITS | Encounter Summary ---
Author Organization [facility] Address [address] [place] [address] Phone Care Team Providers Care Rug Cleaner Name Role Phone Natanael Dumont MD Primary Care Provider [phone] Natanael Dumont MD Primary Care Provider Natanael Dumont MD Unavailable Mikael Omalley DO Unavailable Kodi Hong MD Unavailable Natanael Dumont MD Unavailable Ilya Patel MD Unavailable Jess León NP Unavailable Unavailabl e Omar Smith MD Unavailable [phone] Deysi Johnson Unavailable Encounter Details Date Type Department Care Team (Late st Contact Info) Description 05/09/2022 Procedure Pass [facility], Ct Scan - [address] [phone] Social History Tobacco Use Types Packs/Day Years [...] Description 12/15/2025 11:30 AM EDT Office Visit [facility] Internal Medicine [address] [place] [address] Natanael Dumont MD [address] [place] [address] [email or web address] documented as of this encounter Visit Diagnoses Not on filedocumented in this encounter Additional Health Concerns Assessment Noted Time PHQ-2 Depression Total Score: 2 02/26/20 22 11:54 AM EDT documented as of this encounter Care Teams Rug Cleaner Relationship Specialty Start Date End Date Natanael Dumont MD [address] [place] [address] [email or web address] PCP - General Internal Medicine 04/07/19 07/02/22 Natanael Dumont MD [address] [place] [address] [email or web address] PCP - General Internal Medicine 07/03/22 Mikael Omalley DO [address] [place] [address] [email or web address] PCP - Hematology/Oncology Hematology and Oncology 06/06/20 04/12/24 Natanael Dumont MD [address] [place] [address] Internal Medicine 07/03/22 Kodi Hong MD [address] [place] [address] Internal Medicine 11/10/19 Natanael Dumont MD [address] [place] [phone] [email or web address] Insurance Assigned Provider 12/12/23 Ilya Patel MD [address] [place] [address] Orthopedics & Sports Medicine, [place] [address] Orthopedic Surgery 05/28/20 Jess León NP [address] [place] [address] Family Medicine 05/29/20 Omar Smith MD [address] [place] [address] Urology 10/13/22 Deysi Johnson MBBS [address] [place] [phone] Medical Oncology 04/13/24 documented as of this encounter Additional Source Comments The information contained in this document represents components of the legal health record. It is not the complete legal health record.[facility]
--- OUTSIDE RECORDS SUMMARY | 2025-07-27 08:21 | XMS_ITS | Encounter Summary ---
Author Organization [facility] Address [address] [place] [address] Phone Care Team Providers Care Sales Representative Uniforms Name Role Phone Natanael Dumont MD Primary Care Provider Natanael Dumont MD Unavailable Kodi Hong MD Unavailable [phone] Natanael Dumont MD Unavailable Ilya Patel MD Unavailable [phone] Jess León NP Unavailable Unavailabl e Omar Smith MD Unavailable [phone] Deysi Johnson Unavailable Encounter Details Date Type Department Care Team (Late st Contact Info) Description 06/29/2024 Procedure Pass [place] Admitting Dept - Virtual Department [address] [place] [address] Social History Tobacco Use Types Packs/Day Years [...] Description 12/15/2025 11:30 AM EDT Office Visit [facility] Internal Medicine [address] [place] [address] Natanael Dumont MD [address] [place], [place] [phone] [email or web address] documented as of this encounter Visit Diagnoses Not on filedocumented in this encounter Additional Health Concerns Assessment Noted Time PHQ-2 Depression Total Score: 2 03/28/20 24 1:07 PM EDT documented as of this encounter Care Teams Sales Representative Uniforms Relationship Specialty Start Date End Date Natanael Dumont MD [address] [place] [address] [phone] PCP - General Internal Medicine 07/03/22 Natanael Dumont MD [address] [place] [address] [email or web address] 07/03/22 Kodi Hong MD [address] [place] [address] Internal Medicine 11/10/19 Natanael Dumont MD [address] [place] [phone] [email or web address] Insurance Assigned Provider 12/12/23 Ilya Patel MD [address] [place] [address] Orthopedics & Sports Medicine, [place] [address] Orthopedic Surgery 05/28/20 Jess León NP [address] [place] [address] Family Medicine 05/29/20 Omar Smith MD [address] [place] [address] Urology 10/13/22 Deysi Johnson MBBS [address] [place] [address] Medical Oncology 04/13/24 documented as of this encounter Additional Source Comments The information contained in this document represents components of the legal health record. It is not the complete legal health record.[facility]
== END 2025-07-27 08:03 | disposition home or self-care (01) ==
LOC: HO.HAP 08:02
PROVIDERS: Visit Provider Internal Medicine
DX: Z13.89 Encounter for screening for other disorder (principal)